=== PATIENT | male | born 1945 | race Caucasian/White ===

== ENCOUNTER 2018-02-07 16:36 | Emergency (ER) | payer MEDICARE, MEDICAID ==
[~2018-02-07] VITALS: Ht 172.7 cm; Wt 90.0 kg
[~2018-02-07 16:36] MED LIST: ASPI-1160 PO; ATEN50TA PO; FAMO20TA8 PO; HYDR-4135 PO; LIP40 PO; OMEP10CA4 MT
[2018-02-07 18:54] VITALS: BP 170/95
== END 2018-02-07 18:56 | disposition home or self-care (01) ==
LOC: ER 17:35
DX: Z48.00 Encounter for change or removal of nonsurgical wound dressing (principal); Z98.890 Other specified postprocedural states; I10 Essential (primary) hypertension
CPT/HCPCS: 99281

== ENCOUNTER 2019-02-16 15:43 | Emergency (ER) | payer MEDICARE, MEDICAID ==
[~2019-02-16] VITALS: Ht 170.2 cm; Wt 91.0 kg
[~2019-02-16 15:43] MED LIST changes: +ACET5SOL2 MT; +AMLO5TAB88 PO; -ATEN50TA PO; +CARI-166 MT; +CLOP75TA15 PO; -HYDR-4135 PO; +LISI10TA5 PO; +MECL-109 MT; -OMEP10CA4 MT
[2019-02-16] MEDS ORDERED: IBUPROFEN 600MG TABLET PO ONE (16:30)
[2019-02-16] MEDS ORDERED: TETANUS, DIPHTHERIA, PERTUSSIS VAC/PF 0.5ML (>7YR OLD) IM ONE (16:30)
[2019-02-16 21:15] VITALS: BP 135/78
== END 2019-02-16 21:16 | disposition home or self-care (01) ==
LOC: ER 15:43
DX: S40.012A Contusion of left shoulder, initial encounter (principal); S00.81XA Abrasion of other part of head, initial encounter; E11.9 Type 2 diabetes mellitus without complications; I10 Essential (primary) hypertension; I25.2 Old myocardial infarction; Z86.73 Personal history of transient ischemic attack (TIA), and cerebral infarction without residual deficits; Z79.82 Long term (current) use of aspirin; Z79.899 Other long term (current) drug therapy; Y04.0XXA Assault by unarmed brawl or fight, initial encounter; Y93.89 Activity, other specified; Y92.128 Other place in nursing home as the place of occurrence of the external cause; Y99.8 Other external cause status
CPT/HCPCS: 73030; 90471; 99283

== ENCOUNTER 2019-03-24 14:23 | Inpatient (IN) | payer MEDICARE, MEDICAID ==
[~2019-03-24] VITALS: Ht 172.7 cm; Wt 81.6 kg
[~2019-03-24 14:23] MED LIST changes: -CARI-166 MT; +CARI350T28 MT; -MECL-109 MT; +MECL-159 MT
[2019-03-24] MEDS ORDERED: SODIUM CHLORIDE 0.9% 1,000 ML IV ONE (17:54)
[2019-03-24 19:34] LABS: CHLORIDE 110 mEq/L (98-107)
[2019-03-24 19:35] LABS: BASOPHILS % 0.8 % (0.0-2.0); EOSINOPHILS % 3.5 % (0.0-5.0); HEMOGLOBIN. 12.1 g/dL (14.0-18.0); LYMPHOCYTES % 22.4 % (20.0-50.0); MEAN CORPUSCULAR HEMOGLOBIN 26.5 pg (28.0-32.0); MEAN PLATELET VOLUME 9.4 fl (7.4-10.4); MONOCYTES % 13.1 % (2.0-8.0); NEUTROPHILS % 60.2 % (40.0-76.0); PLATELET 232 x1000/uL (130-400); RED BLOOD CELL COUNT 4.57 mill/uL (4.7-6.1); RED CELL DISTRIBUTION WIDTH 17.5 % (11.6-14.6)
[2019-03-24] MEDS ORDERED: IPRATROPIUM/ALBUTEROL 0.5-3(2.5)MG/3ML NEB NEB PRN (23:15)
[2019-03-24] MEDS ORDERED: ONDANSETRON HCL 4MG/2ML INJ IV PRN (23:15)
[2019-03-24] MEDS ORDERED: DOCUSATE SODIUM 100MG CAPSULE PO PRN (23:15)
[2019-03-24] MEDS ORDERED: ACETAMINOPHEN 325MG TABLET PO PRN (23:15)
[2019-03-24] MEDS ORDERED: MAGNESIUM/ALUMINUM HYDROXIDE/SIMETHICONE 30ML UDC PO PRN (23:15)
[2019-03-24 23:40] VITALS: BP 172/88
[2019-03-25] MEDS: SODIUM CHLORIDE 0.9% 1,000 ML IV SCH ×2 (01:26→13:11)
[2019-03-25] MEDS: CLONIDINE 0.1MG TABLET PO PRN (01:40)
[2019-03-25] MEDS ORDERED: DEXTROSE 50% WATER 50ML SYRINGE IV PRN (02:00)
[2019-03-25] MEDS ORDERED: ATEN50TA PO (02:40)
[2019-03-25 04:00] VITALS: BP 145/87
[2019-03-25] MEDS: BLOOD SUGAR DIAGNOSTIC STRIP TEST SCH ×4 (07:40→21:33)
[2019-03-25 07:58] LABS: CLARITY URINE CLEAR (CLEAR); KETONES URINE 1+ (NEGATIVE); LEUKOCYTE ESTERASE URINE NEGATIVE (NEGATIVE); NITRITE URINE NEGATIVE (NEGATIVE); OCCULT BLOOD URINE NEGATIVE (NEGATIVE); PROTEIN URINE TRACE (NEGATIVE); SPECIFIC GRAVITY URINE 1.026 (1.005-1.030)
[2019-03-25 08:00] VITALS: BP 151/79
[2019-03-25 08:01] LABS: COLOR URINE YELLOW (YELLOW)
[2019-03-25] MEDS: INSULIN LISPRO 100 UNITS/ML SUBCUT SCH ×4 (08:10→21:00)
[2019-03-25 08:21] LABS: *AMPHETAMINES SCREEN URINE NEGATIVE (NEGATIVE); *BARBITURATES SCREEN URINE NEGATIVE (NEGATIVE); *BENZODIAZEPINES SCREEN URINE NEGATIVE (NEGATIVE); *COCAINE SCREEN URINE NEGATIVE (NEGATIVE)
[2019-03-25 08:22] LABS: CANNABINOID URINE SCREEN NEGATIVE (NEGATIVE); METHADONE URINE SCREEN NEGATIVE (NEGATIVE); OPIATES URINE SCREEN NEGATIVE (NEGATIVE); PHENCYCLIDINE URINE SCREEN NEGATIVE (NEGATIVE)
[2019-03-25 08:25] LABS: BASOPHILS % 0.7 % (0.0-2.0); EOSINOPHILS % 3.6 % (0.0-5.0); HEMATOCRIT. 34.5 % (42.0-52.0); HEMOGLOBIN. 11.3 g/dL (14.0-18.0); LYMPHOCYTES % 24.1 % (20.0-50.0); MEAN CORPUSCULAR HEMOGLOBIN 26.5 pg (28.0-32.0); MEAN CORPUSCULAR VOLUME 81.1 fL (80.0-94.0); MEAN PLATELET VOLUME 9.7 fl (7.4-10.4); MONOCYTES % 14.9 % (2.0-8.0); NEUTROPHILS % 56.7 % (40.0-76.0); PLATELET 207 x1000/uL (130-400); RED BLOOD CELL COUNT 4.25 mill/uL (4.7-6.1); RED CELL DISTRIBUTION WIDTH 17.4 % (11.6-14.6)
[2019-03-25 08:33] LABS: CHLORIDE 112 mEq/L (98-107)
[2019-03-25 08:45] LABS: LDL CHOLESTEROL 48 mg/dL (5-100)
[2019-03-25 08:46] LABS: CREATINE KINASE 91 IU/L (39-308)
[2019-03-25 08:47] LABS: HDL CHOLESTEROL 28 mg/dL (40-59)
[2019-03-25 08:50] LABS: CREATINE KINASE MB FRACTION 2.4 ng/mL (0.5-3.6)
[2019-03-25] MEDS ORDERED: ENOXAPARIN 40MG/0.4ML SYR SUBCUT SCH (09:00)
[2019-03-25] MEDS: ATENOLOL 50 MG TABLET PO SCH ×3 (09:30→21:28)
[2019-03-25] MEDS: LISINOPRIL 10MG TABLET PO SCH ×2 (09:30→21:24)
[2019-03-25] MEDS ORDERED: MECLIZINE 25MG TABLET PO PRN (09:30)
[2019-03-25] MEDS: FAMOTIDINE 40MG TABLET PO SCH ×2 (09:30→13:49)
[2019-03-25] MEDS ORDERED: ASPIRIN 81MG TABLET PO SCH (09:30)
[2019-03-25] MEDS: AMLODIPINE 5MG TABLET PO SCH ×2 (09:30→21:25)
[2019-03-25] MEDS: CLOPIDOGREL 75MG TABLET PO SCH ×2 (09:30→13:47)
[2019-03-25] MEDS ORDERED: ACETAMINOPHEN WITH CODEINE 120-12MG/5ML UDC PO PRN (09:30)
[2019-03-25] MEDS ORDERED: CARISOPRODOL 350 MG TABLET PO PRN (09:30)
[2019-03-25] MEDS: LORAZEPAM 2MG/ML CPJ IV PRN (09:47)
[2019-03-25 12:00] VITALS: BP 159/83
[2019-03-25] MEDS ORDERED: POTASSIUM CHLORIDE INJ 40 MEQ in DEXT 5% WATER 250 ML IV NR (13:00)
[2019-03-25 16:00] VITALS: BP 151/85
[2019-03-25] MEDS ORDERED: CEFAZOLIN 1000MG PREMIX 50 ML IV PRN (17:30)
[2019-03-25] MEDS: ACETAMINOPHEN WITH CODEINE 300/30MG TABLET PO PRN (18:21)
[2019-03-25 20:00] VITALS: BP 179/97
[2019-03-25] MEDS: ATORVASTATIN CALCIUM 40MG TABLET PO SCH (21:28)
[2019-03-25] MEDS: PANTOPRAZOLE SODIUM 40 MG/VIAL IV SCH (21:28)
[2019-03-26] VITALS (7 sets, daily range): BP systolic 126–200; BP diastolic 76–104
[2019-03-26] MEDS: SODIUM CHLORIDE 0.9% 1,000 ML IV SCH (00:13)
[2019-03-26] MEDS: DEXT 5%/0.45% NACL 1000ML 1,000 ML IV SCH ×2 (05:13→17:59)
[2019-03-26 05:27] LABS: BASOPHILS % 0.9 % (0.0-2.0); EOSINOPHILS % 4.6 % (0.0-5.0); HEMATOCRIT. 36.9 % (42.0-52.0); HEMOGLOBIN. 12.4 g/dL (14.0-18.0); LYMPHOCYTES % 25.7 % (20.0-50.0); MEAN CORPUSCULAR HEMOGLOBIN 27.1 pg (28.0-32.0); MEAN CORPUSCULAR VOLUME 80.6 fL (80.0-94.0); MEAN PLATELET VOLUME 9.2 fl (7.4-10.4); MONOCYTES % 9.7 % (2.0-8.0); NEUTROPHILS % 59.1 % (40.0-76.0); PLATELET 217 x1000/uL (130-400); RED BLOOD CELL COUNT 4.57 mill/uL (4.7-6.1)
[2019-03-26 05:30] LABS: CHLORIDE 109 mEq/L (98-107)
[2019-03-26 05:35] LABS: INR 1.1; PROTHROMBIN TIME 11.2 sec (9.6-11.0)
[2019-03-26 05:36] LABS: TOTAL IRON BINDING CAPACITY 230 ug/dL (250-450)
[2019-03-26 05:39] LABS: CREATINE KINASE 95 IU/L (39-308); CREATINE KINASE MB FRACTION 3.4 ng/mL (0.5-3.6)
[2019-03-26 05:45] LABS: FERRITIN 205 ng/mL (22-322)
[2019-03-26] MEDS: ATENOLOL 50 MG TABLET PO SCH ×3 (06:00→22:47)
[2019-03-26 06:36] LABS: VITAMIN B12 SERUM >2000 pg/mL pg/mL (211-911)
[2019-03-26] MEDS: BLOOD SUGAR DIAGNOSTIC STRIP TEST SCH ×4 (07:40→21:00)
[2019-03-26] MEDS: INSULIN LISPRO 100 UNITS/ML SUBCUT SCH ×4 (08:10→21:00)
[2019-03-26] MEDS: HYDRALAZINE 20MG/ML VIAL IV PRN ×2 (08:30→20:49)
[2019-03-26] MEDS: PANTOPRAZOLE SODIUM 40 MG/VIAL IV SCH ×2 (08:30→22:47)
[2019-03-26] MEDS: LISINOPRIL 10MG TABLET PO SCH ×2 (09:00→22:47)
[2019-03-26] MEDS: AMLODIPINE 5MG TABLET PO SCH ×2 (09:00→22:46)
[2019-03-26] MEDS ORDERED: KCL 20MEQ/100ML PREMIX 100 ML IV SCH (12:00)
[2019-03-26] MEDS ORDERED: CEFAZOLIN SODIUM 1000MG/VIAL IM ONE (12:00)
[2019-03-26] MEDS ORDERED: MIDAZOLAM HCL 5 MG/5 ML VIAL IV PRN (15:41)
[2019-03-26] MEDS ORDERED: FENTANYL CITRATE/PF 50MCG/ML 2ML VIAL IV PRN (15:42)
[2019-03-26] MEDS ORDERED: MIDAZOLAM HCL 5 MG/5 ML VIAL ONE (15:44)
[2019-03-26] MEDS ORDERED: FENTANYL CITRATE/PF 50MCG/ML 2ML VIAL ONE (15:45)
[2019-03-26] MEDS: ACETAMINOPHEN WITH CODEINE 300/30MG TABLET PO PRN ×2 (18:31→22:47)
[2019-03-26] MEDS: LORAZEPAM 2MG/ML CPJ IV PRN (20:56)
[2019-03-26] MEDS: ATORVASTATIN CALCIUM 40MG TABLET PO SCH (22:55)
[2019-03-27] VITALS (7 sets, daily range): BP systolic 101–169; BP diastolic 56–87
[2019-03-27] MEDS: METOCLOPRAMIDE HCL 10MG/2ML VIAL IV SCH ×4 (00:23→18:50)
[2019-03-27] MEDS: DEXT 5%/0.45% NACL 1000ML 1,000 ML IV SCH ×2 (05:05→18:30)
[2019-03-27] MEDS: ATENOLOL 50 MG TABLET PO SCH ×2 (05:05→13:44)
[2019-03-27] MEDS: LORAZEPAM 2MG/ML CPJ IV PRN (05:22)
[2019-03-27] MEDS: BLOOD SUGAR DIAGNOSTIC STRIP TEST SCH ×3 (06:35→17:40)
[2019-03-27 07:08] LABS: BASOPHILS % 0.3 % (0.0-2.0); EOSINOPHILS % 0.6 % (0.0-5.0); HEMATOCRIT. 35.8 % (42.0-52.0); LYMPHOCYTES % 15.5 % (20.0-50.0); MEAN CORPUSCULAR HEMOGLOBIN 26.7 pg (28.0-32.0); MEAN CORPUSCULAR VOLUME 79.6 fL (80.0-94.0); MEAN PLATELET VOLUME 9.6 fl (7.4-10.4); MONOCYTES % 10.1 % (2.0-8.0); NEUTROPHILS % 73.5 % (40.0-76.0); PLATELET 241 x1000/uL (130-400); RED CELL DISTRIBUTION WIDTH 17.1 % (11.6-14.6)
[2019-03-27 07:23] LABS: CHLORIDE 109 mEq/L (98-107)
[2019-03-27] MEDS: INSULIN LISPRO 100 UNITS/ML SUBCUT SCH ×3 (07:45→18:10)
[2019-03-27] MEDS: LISINOPRIL 10MG TABLET PO SCH (08:58)
[2019-03-27] MEDS: AMLODIPINE 5MG TABLET PO SCH (08:58)
[2019-03-27] MEDS: CLONIDINE 0.1MG TABLET PO PRN (09:06)
[2019-03-27] MEDS: ACETAMINOPHEN WITH CODEINE 300/30MG TABLET PO PRN ×3 (09:06→19:51)
[2019-03-27] MEDS: PANTOPRAZOLE SODIUM 40 MG/VIAL IV SCH (10:05)
[2019-03-27] MEDS ORDERED: POTASSIUM CHLORIDE 20MEQ/PACKET PO SCH (12:30)
[2019-03-27] MEDS ORDERED: METO5TAB94 MT (14:52)
== END 2019-03-27 21:45 | DRG 641 ==
LOC: ER 14:23 → EDBEDREQTM 21:35 → EDBEDREQ 21:35 → ENRESERV 22:44 → 7WST 23:49
PROVIDERS: ADMIT Internal Medicine; ATTEND Internal Medicine
PROC: 0DB78ZX Excision of Stomach, Pylorus, Via Natural or Artificial Opening Endoscopic, Diagnostic (ICD-10-PCS; principal; 2019-03-26)
PROC: 0DH63UZ Insertion of Feeding Device into Stomach, Percutaneous Approach (ICD-10-PCS; 2019-03-26)
DX: R62.7 Adult failure to thrive (principal); I69.354 Hemiplegia and hemiparesis following cerebral infarction affecting left non-dominant side; E87.6 Hypokalemia; E86.0 Dehydration; I10 Essential (primary) hypertension; F03.90 Unspecified dementia, unspecified severity, without behavioral disturbance, psychotic disturbance, mood disturbance, and anxiety; K20.9 Esophagitis, unspecified; K29.70 Gastritis, unspecified, without bleeding; K29.80 Duodenitis without bleeding; K44.9 Diaphragmatic hernia without obstruction or gangrene; R13.10 Dysphagia, unspecified; Z79.899 Other long term (current) drug therapy; Z79.82 Long term (current) use of aspirin
CPT/HCPCS: 36415; 70551; 71045; 73130; 80048; 80053; 80061; 80305; 81003; 82550; 82553; 82607; 82728; 82746; 82962; 83540; 83550; 83605; 83735; 83880; 84443; 84484; 85025; 85044; 87804; 88305; 88312; 88313; 92610; 93005; 93970; 97162; 99285; A6261; C9113; J0360; J0690; J1650; J2060; J2250; J2765; J3010; J3480; J7030; J7060

== ENCOUNTER 2019-03-30 12:52 | Inpatient (IN) | payer MEDICARE, MEDICAID ==
[~2019-03-30] VITALS: Ht 172.7 cm; Wt 86.2 kg
[~2019-03-30 12:52] MED LIST changes: +ATEN50TA PO; +METO5TAB94 MT
[2019-03-30 13:49] LABS: BASOPHILS % 0.3 % (0.0-2.0); EOSINOPHILS % 2.5 % (0.0-5.0); HEMOGLOBIN. 12.4 g/dL (14.0-18.0); LYMPHOCYTES % 15.2 % (20.0-50.0); MEAN CORPUSCULAR HEMOGLOBIN 26.8 pg (28.0-32.0); MEAN PLATELET VOLUME 9.8 fl (7.4-10.4); MONOCYTES % 9.1 % (2.0-8.0); NEUTROPHILS % 72.9 % (40.0-76.0); PLATELET 258 x1000/uL (130-400); RED BLOOD CELL COUNT 4.63 mill/uL (4.7-6.1)
[2019-03-30 13:55] LABS: CHLORIDE 105 mEq/L (98-107)
[2019-03-30 14:18] LABS: CLARITY URINE CLEAR (CLEAR); COLOR URINE YELLOW (YELLOW); KETONES URINE NEGATIVE (NEGATIVE); LEUKOCYTE ESTERASE URINE NEGATIVE (NEGATIVE); NITRITE URINE NEGATIVE (NEGATIVE); OCCULT BLOOD URINE NEGATIVE (NEGATIVE); PROTEIN URINE 1+ (NEGATIVE); SPECIFIC GRAVITY URINE 1.024 (1.005-1.030)
[2019-03-30] MEDS ORDERED: SODIUM CHLORIDE 0.9% 1,000 ML IV ONE (15:55)
[2019-03-30] MEDS ORDERED: VANCOMYCIN 1 G PREMIX 200 ML IV ONE (16:00)
[2019-03-30] MEDS ORDERED: PIPERACILLIN/TAZ 3.375G PREMIX 50 ML IV ONE (16:00)
[2019-03-30] MEDS ORDERED: PIPERACILLIN/TAZ 3.375G PREMIX 50 ML IV SCH (16:15)
[2019-03-30] MEDS ORDERED: DIPHENHYDRAMINE 50MG/ML VIAL IV PRN (16:15)
[2019-03-30] MEDS ORDERED: MECLIZINE 25MG TABLET GT PRN (16:15)
[2019-03-30] MEDS ORDERED: ONDANSETRON HCL 4MG/2ML INJ IV PRN (16:15)
[2019-03-30 17:30] LABS: PHOSPHORUS 3.1 mg/dL (2.5-4.9)
[2019-03-30] MEDS ORDERED: ATENOLOL 50 MG TABLET PO NR (18:30)
[2019-03-30] MEDS ORDERED: AMLODIPINE 5MG TABLET PO SCH (18:30)
[2019-03-30 21:00] VITALS: BP 149/78
[2019-03-30] MEDS ORDERED: FAMOTIDINE 20MG TABLET PO SCH (21:00)
[2019-03-31] VITALS: BP 152/96
[2019-03-31] MEDS: PIPERACILLIN/TAZOBACTAM 3.375 G in DEXT 5% WATER 100 ML IV SCH ×3 (00:58→16:21)
[2019-03-31] MEDS: SODIUM CHLORIDE 0.9% 1,000 ML IV SCH ×2 (00:58→14:14)
[2019-03-31 04:00] VITALS: BP 163/64
[2019-03-31] MEDS: ATENOLOL 50 MG TABLET PO SCH ×3 (04:02→20:53)
[2019-03-31] MEDS: VANCOMYCIN 750 MG PREMIX 150 ML IV SCH ×2 (04:02→18:16)
[2019-03-31 07:08] LABS: BASOPHILS % 0.4 % (0.0-2.0); EOSINOPHILS % 3.4 % (0.0-5.0); HEMATOCRIT. 33.8 % (42.0-52.0); HEMOGLOBIN. 11.2 g/dL (14.0-18.0); LYMPHOCYTES % 20.6 % (20.0-50.0); MEAN CORPUSCULAR HEMOGLOBIN 26.6 pg (28.0-32.0); MEAN CORPUSCULAR VOLUME 80.3 fL (80.0-94.0); MEAN PLATELET VOLUME 10.1 fl (7.4-10.4); MONOCYTES % 9.7 % (2.0-8.0); NEUTROPHILS % 65.9 % (40.0-76.0); PLATELET 243 x1000/uL (130-400); RED BLOOD CELL COUNT 4.21 mill/uL (4.7-6.1); RED CELL DISTRIBUTION WIDTH 16.9 % (11.6-14.6)
[2019-03-31 07:14] LABS: CHLORIDE 107 mEq/L (98-107)
[2019-03-31 08:00] VITALS: BP 144/86
[2019-03-31] MEDS: LISINOPRIL 10MG TABLET PO SCH ×2 (08:43→20:53)
[2019-03-31] MEDS ORDERED: AMLODIPINE 5MG TABLET PO SCH (09:00)
[2019-03-31] MEDS ORDERED: KCL 20MEQ/100ML PREMIX 100 ML IV NR (10:30)
[2019-03-31 12:00] VITALS: BP 126/97
[2019-03-31] MEDS ORDERED: FENTANYL CITRATE/PF 50MCG/ML 2ML VIAL ONE (12:58)
[2019-03-31] MEDS ORDERED: MIDAZOLAM HCL 5 MG/5 ML VIAL ONE (12:58)
[2019-03-31] MEDS ORDERED: MIDAZOLAM HCL 5 MG/5 ML VIAL IV PRN (13:22)
[2019-03-31] MEDS ORDERED: HYDRALAZINE 20MG/ML VIAL IV ONE (13:33)
[2019-03-31] MEDS ORDERED: HYDRALAZINE 20MG/ML VIAL ONE (13:35)
[2019-03-31] MEDS ORDERED: BACTERIOSTATIC SODIUM CHLORIDE 0.9% 30ML VIAL IJ ONE (14:29)
[2019-03-31] MEDS ORDERED: FENTANYL CITRATE/PF 50MCG/ML 2ML VIAL IV PRN (17:00)
[2019-03-31 20:00] VITALS: BP 156/78
[2019-03-31] MEDS: PANTOPRAZOLE SODIUM 40 MG/VIAL IV SCH (20:52)
[2019-04-01] VITALS: BP 161/65
[2019-04-01] MEDS: PIPERACILLIN/TAZOBACTAM 3.375 G in DEXT 5% WATER 100 ML IV SCH ×3 (01:12→16:27)
[2019-04-01] MEDS: ATORVASTATIN CALCIUM 40MG TABLET PO SCH ×2 (01:29→21:12)
[2019-04-01 04:00] VITALS: BP 158/85
[2019-04-01] MEDS: VANCOMYCIN 750 MG PREMIX 150 ML IV SCH ×2 (05:58→17:34)
[2019-04-01] MEDS: ATENOLOL 50 MG TABLET PO SCH ×3 (05:58→21:13)
[2019-04-01] MEDS: SODIUM CHLORIDE 0.9% 1,000 ML IV SCH ×2 (05:59→16:28)
[2019-04-01 06:54] LABS: BASOPHILS % 0.6 % (0.0-2.0); EOSINOPHILS % 4.4 % (0.0-5.0); HEMATOCRIT. 33.6 % (42.0-52.0); HEMOGLOBIN. 11.1 g/dL (14.0-18.0); LYMPHOCYTES % 22.9 % (20.0-50.0); MEAN CORPUSCULAR HEMOGLOBIN 26.6 pg (28.0-32.0); MEAN CORPUSCULAR VOLUME 80.6 fL (80.0-94.0); MEAN PLATELET VOLUME 9.6 fl (7.4-10.4); MONOCYTES % 9.5 % (2.0-8.0); NEUTROPHILS % 62.6 % (40.0-76.0); PLATELET 254 x1000/uL (130-400); RED BLOOD CELL COUNT 4.17 mill/uL (4.7-6.1); RED CELL DISTRIBUTION WIDTH 16.9 % (11.6-14.6)
[2019-04-01 07:21] LABS: CHLORIDE 110 mEq/L (98-107)
[2019-04-01 07:30] LABS: VANCOMYCIN TROUGH 13.4 ug/mL (5.0-10.0)
[2019-04-01 08:00] VITALS: BP 167/57
[2019-04-01] MEDS: LISINOPRIL 10MG TABLET PO SCH ×2 (08:51→21:12)
[2019-04-01] MEDS: PANTOPRAZOLE SODIUM 40 MG/VIAL IV SCH ×2 (08:52→21:13)
[2019-04-01] MEDS ORDERED: POTASSIUM CHLORIDE 20MEQ TABLET SR PO SCH (09:00)
[2019-04-01 12:00] VITALS: BP 139/85
[2019-04-01 16:00] VITALS: BP 164/68
[2019-04-01] MEDS: LORAZEPAM 2MG/ML CPJ IV PRN (18:09)
[2019-04-01 20:00] VITALS: BP 181/80
[2019-04-01] MEDS: CARISOPRODOL 350 MG TABLET GT PRN (21:26)
[2019-04-02] VITALS: BP 187/86
[2019-04-02] MEDS: PIPERACILLIN/TAZOBACTAM 3.375 G in DEXT 5% WATER 100 ML IV SCH (00:23)
[2019-04-02] MEDS: LORAZEPAM 2MG/ML CPJ IV PRN (01:27)
[2019-04-02 04:00] VITALS: BP 156/88
[2019-04-02] MEDS: VANCOMYCIN 750 MG PREMIX 150 ML IV SCH (05:36)
[2019-04-02] MEDS: SODIUM CHLORIDE 0.9% 1,000 ML IV SCH (05:36)
[2019-04-02] MEDS: ATENOLOL 50 MG TABLET PO SCH ×3 (05:36→21:51)
[2019-04-02 06:54] LABS: BASOPHILS % 0.6 % (0.0-2.0); EOSINOPHILS % 4.1 % (0.0-5.0); HEMATOCRIT. 36.4 % (42.0-52.0); HEMOGLOBIN. 12.1 g/dL (14.0-18.0); LYMPHOCYTES % 24.3 % (20.0-50.0); MEAN CORPUSCULAR HEMOGLOBIN 26.5 pg (28.0-32.0); MEAN PLATELET VOLUME 9.3 fl (7.4-10.4); MONOCYTES % 11.3 % (2.0-8.0); NEUTROPHILS % 59.7 % (40.0-76.0); PLATELET 255 x1000/uL (130-400); RED BLOOD CELL COUNT 4.56 mill/uL (4.7-6.1); RED CELL DISTRIBUTION WIDTH 16.8 % (11.6-14.6)
[2019-04-02 07:28] LABS: CHLORIDE 109 mEq/L (98-107)
[2019-04-02 07:37] LABS: PHOSPHORUS 3.1 mg/dL (2.5-4.9)
[2019-04-02 08:00] VITALS: BP 177/105
[2019-04-02] MEDS: PANTOPRAZOLE SODIUM 40 MG/VIAL IV SCH ×2 (09:58→21:52)
[2019-04-02] MEDS: DEXT 5%/0.9% NACL 1,000 ML IV SCH (10:08)
[2019-04-02] MEDS: LISINOPRIL 10MG TABLET PO SCH ×2 (10:09→21:52)
[2019-04-02] MEDS: AMLODIPINE 5MG TABLET PO SCH (10:19)
[2019-04-02] MEDS ORDERED: DIATR MEGLU/DIATRIZOATE SOLN 30ML PO SCH (10:30)
[2019-04-02] MEDS ORDERED: POTASSIUM CHLORIDE INJ 40 MEQ in DEXT 5% WATER 500 ML IV SCH (11:00)
[2019-04-02 12:00] VITALS: BP 137/63
[2019-04-02 16:00] VITALS: BP 173/98
[2019-04-02] MEDS ORDERED: IOHEXOL-300 100 ML BOTTLE ONE (16:15)
[2019-04-02 20:00] VITALS: BP 144/89
[2019-04-02] MEDS: ATORVASTATIN CALCIUM 40MG TABLET PO SCH (21:51)
[2019-04-02] MEDS: CARISOPRODOL 350 MG TABLET GT PRN (21:51)
[2019-04-03] VITALS: BP 147/91
[2019-04-03] MEDS: LORAZEPAM 2MG/ML CPJ IV PRN (00:10)
[2019-04-03] MEDS: DEXT 5%/0.9% NACL 1,000 ML IV SCH ×3 (03:44→22:25)
[2019-04-03 04:00] VITALS: BP 109/59
[2019-04-03] MEDS: ATENOLOL 50 MG TABLET PO SCH ×3 (05:26→22:56)
[2019-04-03 07:59] LABS: BASOPHILS % 0.7 % (0.0-2.0); EOSINOPHILS % 2.8 % (0.0-5.0); HEMATOCRIT. 33.1 % (42.0-52.0); LYMPHOCYTES % 23.2 % (20.0-50.0); MEAN CORPUSCULAR HEMOGLOBIN 26.7 pg (28.0-32.0); MEAN CORPUSCULAR VOLUME 80.1 fL (80.0-94.0); MEAN PLATELET VOLUME 9.5 fl (7.4-10.4); MONOCYTES % 11.4 % (2.0-8.0); NEUTROPHILS % 61.9 % (40.0-76.0); PLATELET 253 x1000/uL (130-400); RED BLOOD CELL COUNT 4.13 mill/uL (4.7-6.1); RED CELL DISTRIBUTION WIDTH 16.4 % (11.6-14.6)
[2019-04-03 08:00] VITALS: BP 145/64
[2019-04-03 08:23] LABS: PHOSPHORUS 4.1 mg/dL (2.5-4.9)
[2019-04-03] MEDS: PANTOPRAZOLE SODIUM 40 MG/VIAL IV SCH ×2 (09:57→22:26)
[2019-04-03] MEDS: AMLODIPINE 5MG TABLET PO SCH (09:57)
[2019-04-03] MEDS: LISINOPRIL 10MG TABLET PO SCH ×2 (09:57→22:53)
[2019-04-03] MEDS ORDERED: POTASSIUM CHLORIDE INJ 40 MEQ in DEXT 5% WATER 500 ML IV NR (10:00)
[2019-04-03] MEDS ORDERED: VANCOMYCIN 1250MG in DEXTROSE 5% WATER 250ML IV NR (14:00)
[2019-04-03] MEDS: CLONIDINE 0.2MG TABLET PO PRN (18:02)
[2019-04-03 18:41] VITALS: BP 145/64
[2019-04-03 20:00] VITALS: BP 136/71
[2019-04-03] MEDS ORDERED: LIDOCAINE HCL/EPINEPHRINE 1%-EPI 1:100,000 20 ML VIAL INFIL NR (20:00)
[2019-04-03] MEDS: ATORVASTATIN CALCIUM 40MG TABLET PO SCH (22:26)
[2019-04-03] MEDS: VANCOMYCIN 750 MG PREMIX 150 ML IV SCH (22:56)
[2019-04-04 04:00] VITALS: BP 173/68
[2019-04-04] MEDS: CLONIDINE 0.2MG TABLET PO PRN ×2 (04:35→23:50)
[2019-04-04 06:21] LABS: BASOPHILS % 0.6 % (0.0-2.0); EOSINOPHILS % 3.2 % (0.0-5.0); HEMATOCRIT. 28.2 % (42.0-52.0); HEMOGLOBIN. 9.5 g/dL (14.0-18.0); LYMPHOCYTES % 24.8 % (20.0-50.0); MEAN PLATELET VOLUME 9.1 fl (7.4-10.4); MONOCYTES % 10.5 % (2.0-8.0); NEUTROPHILS % 60.9 % (40.0-76.0); PLATELET 243 x1000/uL (130-400); RED BLOOD CELL COUNT 3.53 mill/uL (4.7-6.1); RED CELL DISTRIBUTION WIDTH 16.6 % (11.6-14.6)
[2019-04-04] MEDS: ATENOLOL 50 MG TABLET PO SCH ×3 (06:55→22:12)
[2019-04-04 08:00] VITALS: BP 109/70
[2019-04-04] MEDS: AMLODIPINE 5MG TABLET PO SCH (09:42)
[2019-04-04] MEDS: PANTOPRAZOLE SODIUM 40 MG/VIAL IV SCH ×2 (09:42→21:19)
[2019-04-04] MEDS: LISINOPRIL 10MG TABLET PO SCH ×2 (09:42→21:18)
[2019-04-04] MEDS: VANCOMYCIN 750 MG PREMIX 150 ML IV SCH ×2 (09:42→22:17)
[2019-04-04 12:00] VITALS: BP 141/65
[2019-04-04] MEDS ORDERED: POTASSIUM CHLORIDE INJ 40 MEQ in DEXT 5% WATER 500 ML IV NR (13:30)
[2019-04-04] MEDS: DEXT 5%/0.9% NACL 1,000 ML IV SCH (14:30)
[2019-04-04 16:00] VITALS: BP 100/42
[2019-04-04 20:00] VITALS: BP 162/73
[2019-04-04] MEDS: ATORVASTATIN CALCIUM 40MG TABLET PO SCH (21:18)
[2019-04-05] VITALS: BP 164/78
[2019-04-05 04:00] VITALS: BP 142/76
[2019-04-05] MEDS: CLONIDINE 0.2MG TABLET PO PRN (04:44)
[2019-04-05 05:58] LABS: BASOPHILS % 0.7 % (0.0-2.0); EOSINOPHILS % 3.1 % (0.0-5.0); HEMATOCRIT. 31.6 % (42.0-52.0); HEMOGLOBIN. 10.2 g/dL (14.0-18.0); LYMPHOCYTES % 23.1 % (20.0-50.0); MEAN CORPUSCULAR HEMOGLOBIN 26.4 pg (28.0-32.0); MEAN CORPUSCULAR VOLUME 81.8 fL (80.0-94.0); MONOCYTES % 9.7 % (2.0-8.0); NEUTROPHILS % 63.4 % (40.0-76.0); PLATELET 239 x1000/uL (130-400); RED BLOOD CELL COUNT 3.87 mill/uL (4.7-6.1); RED CELL DISTRIBUTION WIDTH 16.5 % (11.6-14.6)
[2019-04-05] MEDS: ATENOLOL 50 MG TABLET PO SCH ×2 (06:24→14:00)
[2019-04-05 08:01] VITALS: BP 97/55
[2019-04-05] MEDS: AMLODIPINE 5MG TABLET PO SCH (09:00)
[2019-04-05] MEDS: LISINOPRIL 10MG TABLET PO SCH ×2 (09:00→21:00)
[2019-04-05] MEDS: PANTOPRAZOLE SODIUM 40 MG/VIAL IV SCH ×2 (09:56→21:23)
[2019-04-05] MEDS: VANCOMYCIN 750 MG PREMIX 150 ML IV SCH (09:57)
[2019-04-05 12:00] VITALS: BP 124/55
[2019-04-05 15:48] VITALS: BP 98/57
[2019-04-05 20:00] VITALS: BP 127/70
[2019-04-05] MEDS: ATORVASTATIN CALCIUM 40MG TABLET PO SCH (21:26)
[2019-04-05] MEDS: DEXT 5%/0.9% NACL 1,000 ML IV SCH (21:37)
[2019-04-06] VITALS: BP 169/74
[2019-04-06] MEDS: ATENOLOL 50 MG TABLET PO SCH ×4 (00:10→22:53)
[2019-04-06 04:00] VITALS: BP 147/81
[2019-04-06 08:00] VITALS: BP 203/94
[2019-04-06 08:19] LABS: BASOPHILS % 0.7 % (0.0-2.0); EOSINOPHILS % 3.5 % (0.0-5.0); HEMATOCRIT. 33.6 % (42.0-52.0); HEMOGLOBIN. 11.3 g/dL (14.0-18.0); LYMPHOCYTES % 19.6 % (20.0-50.0); MEAN CORPUSCULAR HEMOGLOBIN 26.7 pg (28.0-32.0); MEAN CORPUSCULAR VOLUME 79.3 fL (80.0-94.0); MEAN PLATELET VOLUME 9.1 fl (7.4-10.4); MONOCYTES % 9.7 % (2.0-8.0); NEUTROPHILS % 66.5 % (40.0-76.0); PLATELET 246 x1000/uL (130-400); RED BLOOD CELL COUNT 4.24 mill/uL (4.7-6.1); RED CELL DISTRIBUTION WIDTH 16.7 % (11.6-14.6)
[2019-04-06] MEDS: AMLODIPINE 5MG TABLET PO SCH (08:41)
[2019-04-06] MEDS: LISINOPRIL 10MG TABLET PO SCH ×2 (08:41→20:20)
[2019-04-06] MEDS: PANTOPRAZOLE SODIUM 40 MG/VIAL IV SCH ×2 (09:00→20:19)
[2019-04-06] MEDS ORDERED: POTASSIUM CHLORIDE 20MEQ TABLET SR PO NR (11:45)
[2019-04-06 12:00] VITALS: BP 176/98
[2019-04-06] MEDS: HYDROCODONE/ACETAMINOPHEN 5/325MG TABLET PO PRN (12:04)
[2019-04-06] MEDS: CLONIDINE 0.2MG TABLET PO PRN (12:43)
[2019-04-06 16:08] VITALS: BP 100/68
[2019-04-06] MEDS: VANCOMYCIN 1 G PREMIX 200 ML IV SCH (16:35)
[2019-04-06 20:00] VITALS: BP 135/58
[2019-04-06] MEDS: ATORVASTATIN CALCIUM 40MG TABLET PO SCH (20:19)
[2019-04-06] MEDS: DEXT 5%/0.9% NACL 1,000 ML IV SCH (23:01)
[2019-04-07] VITALS: BP 139/64
[2019-04-07 04:00] VITALS: BP 203/88
[2019-04-07] MEDS: CARISOPRODOL 350 MG TABLET GT PRN (04:13)
[2019-04-07] MEDS: CLONIDINE 0.2MG TABLET PO PRN (04:13)
[2019-04-07] MEDS: ATENOLOL 50 MG TABLET PO SCH ×3 (06:00→21:55)
[2019-04-07 07:44] LABS: BASOPHILS % 0.7 % (0.0-2.0); EOSINOPHILS % 3.2 % (0.0-5.0); HEMATOCRIT. 32.6 % (42.0-52.0); HEMOGLOBIN. 10.7 g/dL (14.0-18.0); LYMPHOCYTES % 24.4 % (20.0-50.0); MEAN CORPUSCULAR HEMOGLOBIN 26.4 pg (28.0-32.0); MEAN CORPUSCULAR VOLUME 80.4 fL (80.0-94.0); MEAN PLATELET VOLUME 9.1 fl (7.4-10.4); MONOCYTES % 8.3 % (2.0-8.0); NEUTROPHILS % 63.4 % (40.0-76.0); PLATELET 236 x1000/uL (130-400); RED BLOOD CELL COUNT 4.05 mill/uL (4.7-6.1); RED CELL DISTRIBUTION WIDTH 16.8 % (11.6-14.6)
[2019-04-07 08:00] VITALS: BP 119/65
[2019-04-07] MEDS: LISINOPRIL 10MG TABLET PO SCH ×2 (09:00→22:00)
[2019-04-07] MEDS: AMLODIPINE 5MG TABLET PO SCH (09:00)
[2019-04-07] MEDS: PANTOPRAZOLE SODIUM 40 MG/VIAL IV SCH ×2 (09:00→21:55)
[2019-04-07] MEDS: DEXT 5%/0.9% NACL 1,000 ML IV SCH ×2 (09:45→19:45)
[2019-04-07 12:00] VITALS: BP 162/70
[2019-04-07] MEDS: VANCOMYCIN 1 G PREMIX 200 ML IV SCH (15:50)
[2019-04-07 16:00] VITALS: BP 131/71
[2019-04-07] MEDS ORDERED: POTASSIUM CHLORIDE INJ 40 MEQ in DEXT 5% WATER 250 ML IV NR (18:00)
[2019-04-07 20:00] VITALS: BP 152/68
[2019-04-07] MEDS: ATORVASTATIN CALCIUM 40MG TABLET PO SCH (21:55)
[2019-04-07] MEDS: MORPHINE SULFATE 2 MG/ML CPJ (NOT FOR IM USE) IV PRN (23:41)
[2019-04-08] VITALS: BP 105/86
[2019-04-08 04:00] VITALS: BP 169/90
[2019-04-08] MEDS: ATENOLOL 50 MG TABLET PO SCH ×3 (05:49→22:47)
[2019-04-08 07:15] LABS: BASOPHILS % 0.9 % (0.0-2.0); EOSINOPHILS % 3.5 % (0.0-5.0); HEMATOCRIT. 34.2 % (42.0-52.0); HEMOGLOBIN. 11.4 g/dL (14.0-18.0); LYMPHOCYTES % 18.9 % (20.0-50.0); MEAN CORPUSCULAR HEMOGLOBIN 26.9 pg (28.0-32.0); MEAN CORPUSCULAR VOLUME 80.3 fL (80.0-94.0); MEAN PLATELET VOLUME 9.4 fl (7.4-10.4); MONOCYTES % 8.3 % (2.0-8.0); NEUTROPHILS % 68.4 % (40.0-76.0); PLATELET 232 x1000/uL (130-400); RED BLOOD CELL COUNT 4.26 mill/uL (4.7-6.1); RED CELL DISTRIBUTION WIDTH 16.5 % (11.6-14.6)
[2019-04-08 08:00] VITALS: BP 198/85
[2019-04-08] MEDS: AMLODIPINE 5MG TABLET PO SCH (09:06)
[2019-04-08] MEDS: PANTOPRAZOLE SODIUM 40 MG/VIAL IV SCH ×2 (09:06→20:02)
[2019-04-08] MEDS: LISINOPRIL 10MG TABLET PO SCH ×2 (09:06→20:01)
[2019-04-08 12:00] VITALS: BP 130/77
[2019-04-08] MEDS ORDERED: POTASSIUM CHLORIDE 20MEQ TABLET SR PO NR (12:30)
[2019-04-08] MEDS ORDERED: POTASSIUM CHLORIDE 20MEQ/PACKET PO NR (12:45)
[2019-04-08] MEDS: VANCOMYCIN 1 G PREMIX 200 ML IV SCH ×2 (15:00→17:56)
[2019-04-08 16:00] VITALS: BP 172/92
[2019-04-08] MEDS: CLONIDINE 0.2MG TABLET PO PRN (17:23)
[2019-04-08] MEDS: MORPHINE SULFATE 2 MG/ML CPJ (NOT FOR IM USE) IV PRN (17:25)
[2019-04-08 20:00] VITALS: BP 148/94
[2019-04-08] MEDS: HYDROCODONE/ACETAMINOPHEN 5/325MG TABLET PO PRN (20:01)
[2019-04-08] MEDS: ATORVASTATIN CALCIUM 40MG TABLET PO SCH (20:02)
[2019-04-09] VITALS: BP 120/56
[2019-04-09 04:00] VITALS: BP 139/75
[2019-04-09] MEDS: DEXT 5%/0.9% NACL 1,000 ML IV SCH (06:41)
[2019-04-09] MEDS: ATENOLOL 50 MG TABLET PO SCH ×3 (06:42→22:00)
[2019-04-09 08:00] VITALS: BP 127/73
[2019-04-09] MEDS ORDERED: POTASSIUM CHLORIDE 20MEQ TABLET SR PO SCH (09:00)
[2019-04-09] MEDS: LISINOPRIL 10MG TABLET PO SCH ×2 (09:05→20:38)
[2019-04-09] MEDS: PANTOPRAZOLE SODIUM 40 MG/VIAL IV SCH ×2 (09:05→20:38)
[2019-04-09] MEDS: AMLODIPINE 5MG TABLET PO SCH (09:05)
[2019-04-09] MEDS: POTASSIUM CHLORIDE 20MEQ/PACKET PO SCH (09:05)
[2019-04-09 12:00] VITALS: BP 153/78
[2019-04-09] MEDS: MORPHINE SULFATE 2 MG/ML CPJ (NOT FOR IM USE) IV PRN (12:23)
[2019-04-09] MEDS: GUAIFENESIN 200MG/10ML SUGAR FREE UDC PO SCH ×2 (13:25→20:38)
[2019-04-09 16:00] VITALS: BP 177/66
[2019-04-09] MEDS: CLONIDINE 0.2MG TABLET PO PRN (16:58)
[2019-04-09] MEDS ORDERED: VANCOMYCIN 750 MG PREMIX 150 ML IV SCH (18:00)
[2019-04-09 20:00] VITALS: BP 104/60
[2019-04-09] MEDS: ATORVASTATIN CALCIUM 40MG TABLET PO SCH (20:38)
[2019-04-10] VITALS: BP 101/59
[2019-04-10 04:00] VITALS: BP 148/58
[2019-04-10] MEDS: ATENOLOL 50 MG TABLET PO SCH ×3 (06:04→22:02)
[2019-04-10] MEDS: GUAIFENESIN 200MG/10ML SUGAR FREE UDC PO SCH ×3 (06:04→21:10)
[2019-04-10 07:54] LABS: BASOPHILS % 0.5 % (0.0-2.0); HEMATOCRIT. 28.4 % (42.0-52.0); HEMOGLOBIN. 9.4 g/dL (14.0-18.0); LYMPHOCYTES % 18.2 % (20.0-50.0); MEAN CORPUSCULAR HEMOGLOBIN 26.6 pg (28.0-32.0); MEAN CORPUSCULAR VOLUME 80.8 fL (80.0-94.0); MEAN PLATELET VOLUME 9.6 fl (7.4-10.4); MONOCYTES % 9.6 % (2.0-8.0); NEUTROPHILS % 68.7 % (40.0-76.0); PLATELET 179 x1000/uL (130-400); RED BLOOD CELL COUNT 3.52 mill/uL (4.7-6.1); RED CELL DISTRIBUTION WIDTH 17.2 % (11.6-14.6)
[2019-04-10 08:00] VITALS: BP 193/69
[2019-04-10] MEDS: AMLODIPINE 5MG TABLET PO SCH (08:36)
[2019-04-10] MEDS: PANTOPRAZOLE SODIUM 40 MG/VIAL IV SCH ×2 (08:36→21:09)
[2019-04-10] MEDS: LISINOPRIL 10MG TABLET PO SCH ×2 (08:36→21:10)
[2019-04-10] MEDS: POTASSIUM CHLORIDE 20MEQ/PACKET PO SCH (08:36)
[2019-04-10 12:00] VITALS: BP 168/84
[2019-04-10] MEDS: MORPHINE SULFATE 2 MG/ML CPJ (NOT FOR IM USE) IV PRN (12:09)
[2019-04-10] MEDS: CLONIDINE 0.2MG TABLET PO PRN (15:12)
[2019-04-10] MEDS ORDERED: AMLODIPINE 5MG TABLET PO NR (15:15)
[2019-04-10 16:00] VITALS: BP 165/80
[2019-04-10] MEDS ORDERED: DOXYCYCLINE HYCLATE 100MG CAPSULE PO SCH (17:00)
[2019-04-10] MEDS: DEXT 5%/0.9% NACL 1,000 ML IV SCH ×2 (17:59→18:00)
[2019-04-10 20:00] VITALS: BP 109/63
[2019-04-10] MEDS ORDERED: AMOXICILLIN/POTASSIUM CLAVULANATE 875/125MG TAB PO SCH (21:00)
[2019-04-10] MEDS: ATORVASTATIN CALCIUM 40MG TABLET PO SCH (21:09)
[2019-04-11] VITALS: BP 160/68
[2019-04-11] MEDS: DEXT 5%/0.9% NACL 1,000 ML IV SCH ×2 (00:45→12:45)
[2019-04-11 04:00] VITALS: BP 165/91
[2019-04-11] MEDS: GUAIFENESIN 200MG/10ML SUGAR FREE UDC PO SCH ×3 (05:52→21:07)
[2019-04-11] MEDS: ATENOLOL 50 MG TABLET PO SCH ×2 (05:53→13:12)
[2019-04-11 08:00] VITALS: BP 201/82
[2019-04-11] MEDS: AMLODIPINE 10MG TABLET PO SCH (08:31)
[2019-04-11] MEDS: LISINOPRIL 10MG TABLET PO SCH (08:31)
[2019-04-11] MEDS: PANTOPRAZOLE SODIUM 40 MG/VIAL IV SCH ×2 (08:31→20:57)
[2019-04-11] MEDS: POTASSIUM CHLORIDE 20MEQ/PACKET PO SCH (08:31)
[2019-04-11] MEDS: CLONIDINE 0.2MG TABLET PO PRN (11:33)
[2019-04-11 12:00] VITALS: BP 208/71
[2019-04-11] MEDS ORDERED: HYDRALAZINE 20MG/ML VIAL IV PRN (14:15)
[2019-04-11] MEDS ORDERED: HYDRALAZINE 10 MG in SODIUM CHLORIDE 0.9% 49.5 ML IV PRN (14:15)
[2019-04-11 16:00] VITALS: BP 160/68
[2019-04-11 17:45] LABS: PROTHROMBIN TIME 10.7 sec (9.6-11.0)
[2019-04-11 20:00] VITALS: BP 155/68
[2019-04-11] MEDS: METOPROLOL TARTRATE 50MG TABLET PO SCH (20:56)
[2019-04-11] MEDS: ATORVASTATIN CALCIUM 40MG TABLET PO SCH (20:56)
[2019-04-11] MEDS: LISINOPRIL 20MG TABLET PO SCH (20:57)
[2019-04-12] VITALS (7 sets, daily range): BP systolic 137–192; BP diastolic 61–108
[2019-04-12] MEDS: CARISOPRODOL 350 MG TABLET GT PRN (00:15)
[2019-04-12] MEDS: DEXT 5%/0.9% NACL 1,000 ML IV SCH ×3 (00:16→21:17)
[2019-04-12] MEDS ORDERED: CLONIDINE 0.1MG TABLET PO PRN (05:00)
[2019-04-12 06:36] LABS: INR 1.1; PROTHROMBIN TIME 11.4 sec (9.6-11.0)
[2019-04-12 06:49] LABS: BASOPHILS % 0.8 % (0.0-2.0); EOSINOPHILS % 3.7 % (0.0-5.0); HEMATOCRIT. 32.5 % (42.0-52.0); HEMOGLOBIN. 10.6 g/dL (14.0-18.0); LYMPHOCYTES % 23.1 % (20.0-50.0); MEAN CORPUSCULAR HEMOGLOBIN 26.5 pg (28.0-32.0); MEAN CORPUSCULAR VOLUME 81.5 fL (80.0-94.0); MEAN PLATELET VOLUME 9.8 fl (7.4-10.4); MONOCYTES % 9.9 % (2.0-8.0); NEUTROPHILS % 62.5 % (40.0-76.0); PLATELET 193 x1000/uL (130-400); RED BLOOD CELL COUNT 3.99 mill/uL (4.7-6.1)
[2019-04-12 08:52] LABS: RED BLOOD CELL COUNT 4.19 mill/uL (4.7-6.1)
[2019-04-12 08:53] LABS: HEMATOCRIT 33.4 % (42.0-52.0); HEMOGLOBIN 11.1 g/dL (14.0-18.0); MEAN CORPUSCULAR HEMOGLOBIN 26.5 pg (28.0-32.0); MEAN CORPUSCULAR VOLUME 79.8 fL (80.0-94.0); PLATELET 190 x1000/uL (130-400); RED CELL DISTRIBUTION WIDTH 17.1 % (11.6-14.6)
[2019-04-12] MEDS: METOPROLOL TARTRATE 50MG TABLET PO SCH ×2 (09:00→21:00)
[2019-04-12] MEDS: LISINOPRIL 20MG TABLET PO SCH ×2 (09:00→21:00)
[2019-04-12] MEDS: POTASSIUM CHLORIDE 20MEQ/PACKET PO SCH (09:00)
[2019-04-12] MEDS: AMLODIPINE 10MG TABLET PO SCH (09:00)
[2019-04-12] MEDS ORDERED: HYDRALAZINE 5 MG in SODIUM CHLORIDE 0.9% 49.5 ML IV NR (10:00)
[2019-04-12] MEDS: PANTOPRAZOLE SODIUM 40 MG/VIAL IV SCH ×2 (10:05→21:10)
[2019-04-12] MEDS ORDERED: POTASSIUM CHLORIDE INJ 40 MEQ in DEXT 5% WATER 500 ML IV NR (11:00)
[2019-04-12] MEDS ORDERED: FENTANYL CITRATE/PF 50MCG/ML 2ML VIAL ONE (15:36)
[2019-04-12] MEDS ORDERED: MIDAZOLAM HCL 5 MG/5 ML VIAL ONE (15:36)
[2019-04-12] MEDS ORDERED: FENTANYL CITRATE/PF 50MCG/ML 2ML VIAL IV PRN (15:36)
[2019-04-12] MEDS ORDERED: MIDAZOLAM HCL 5 MG/5 ML VIAL IV PRN (15:36)
[2019-04-12] MEDS: MORPHINE SULFATE 2 MG/ML CPJ (NOT FOR IM USE) IV PRN (18:23)
[2019-04-12] MEDS: ATORVASTATIN CALCIUM 40MG TABLET PO SCH (21:00)
[2019-04-12] MEDS: CEFAZOLIN 1000MG PREMIX 50 ML IV SCH (21:11)
[2019-04-12] MEDS: GUAIFENESIN 200MG/10ML SUGAR FREE UDC PO SCH (21:12)
[2019-04-13] VITALS: BP 125/81
[2019-04-13] MEDS: MORPHINE SULFATE 2 MG/ML CPJ (NOT FOR IM USE) IV PRN ×3 (00:27→10:59)
[2019-04-13] MEDS: CEFAZOLIN 1000MG PREMIX 50 ML IV SCH ×2 (03:17→12:12)
[2019-04-13 04:00] VITALS: BP 158/89
[2019-04-13] MEDS: GUAIFENESIN 200MG/10ML SUGAR FREE UDC PO SCH ×2 (05:24→14:16)
[2019-04-13] MEDS: DEXT 5%/0.9% NACL 1,000 ML IV SCH ×2 (05:45→15:45)
[2019-04-13 06:49] LABS: BASOPHILS % 0.4 % (0.0-2.0); EOSINOPHILS % 0.5 % (0.0-5.0); HEMATOCRIT. 34.1 % (42.0-52.0); HEMOGLOBIN. 11.1 g/dL (14.0-18.0); LYMPHOCYTES % 18.6 % (20.0-50.0); MEAN CORPUSCULAR HEMOGLOBIN 26.1 pg (28.0-32.0); MEAN CORPUSCULAR VOLUME 80.3 fL (80.0-94.0); MONOCYTES % 8.1 % (2.0-8.0); NEUTROPHILS % 72.4 % (40.0-76.0); PLATELET 226 x1000/uL (130-400); RED BLOOD CELL COUNT 4.24 mill/uL (4.7-6.1); RED CELL DISTRIBUTION WIDTH 17.1 % (11.6-14.6)
[2019-04-13 08:00] VITALS: BP 130/80
[2019-04-13] MEDS: POTASSIUM CHLORIDE 20MEQ/PACKET PO SCH (09:02)
[2019-04-13] MEDS: METOPROLOL TARTRATE 50MG TABLET PO SCH (09:03)
[2019-04-13] MEDS: LISINOPRIL 20MG TABLET PO SCH (09:03)
[2019-04-13] MEDS: AMLODIPINE 10MG TABLET PO SCH (09:04)
[2019-04-13] MEDS: PANTOPRAZOLE SODIUM 40 MG/VIAL IV SCH (09:04)
[2019-04-13 12:00] VITALS: BP 151/69
[2019-04-13] MEDS ORDERED: POTASSIUM CHLORIDE 20MEQ/PACKET GT NR (15:30)
[2019-04-13 16:00] VITALS: BP_SYST 135; BP_SYST 142; BP_DIAS 58; BP_DIAS 79
[2019-04-13] MEDS: CARISOPRODOL 350 MG TABLET GT PRN (16:09)
[2019-04-13 16:16] VITALS: BP 132/60
[2019-04-13] MEDS ORDERED: POTASSIUM CHLORIDE INJ 40 MEQ in DEXT 5% WATER 500 ML IV NR (17:00)
== END 2019-04-13 19:11 | DRG 357 ==
LOC: ER 12:52 → 6EST 15:56 → EDBEDREQTM 16:06 → EDBEDREQ 16:06 → EDBEDREQSVC 16:06 → ENRESERV 20:27 → EDBEDREQ 20:59
PROVIDERS: ADMIT Internal Medicine; ATTEND Internal Medicine
PROC: 0DJ68ZZ Inspection of Stomach, Via Natural or Artificial Opening Endoscopic (ICD-10-PCS; principal; 2019-03-31)
PROC: 0DP6XUZ Removal of Feeding Device from Stomach, External Approach (ICD-10-PCS; 2019-03-31)
PROC: 0JB80ZZ Excision of Abdomen Subcutaneous Tissue and Fascia, Open Approach (ICD-10-PCS; 2019-04-03)
PROC: 0DH63UZ Insertion of Feeding Device into Stomach, Percutaneous Approach (ICD-10-PCS; 2019-04-12)
DX: K94.29 Other complications of gastrostomy (principal); L03.311 Cellulitis of abdominal wall; I69.354 Hemiplegia and hemiparesis following cerebral infarction affecting left non-dominant side; L02.211 Cutaneous abscess of abdominal wall; E44.1 Mild protein-calorie malnutrition; K94.23 Gastrostomy malfunction; K94.22 Gastrostomy infection; K44.9 Diaphragmatic hernia without obstruction or gangrene; R13.12 Dysphagia, oropharyngeal phase; D64.9 Anemia, unspecified; E87.6 Hypokalemia; B95.4 Other streptococcus as the cause of diseases classified elsewhere; F01.50 Vascular dementia, unspecified severity, without behavioral disturbance, psychotic disturbance, mood disturbance, and anxiety; Y83.3 Surgical operation with formation of external stoma as the cause of abnormal reaction of the patient, or of later complication, without mention of misadventure at the time of the procedure; M24.542 Contracture, left hand; K29.70 Gastritis, unspecified, without bleeding; I10 Essential (primary) hypertension; Y92.128 Other place in nursing home as the place of occurrence of the external cause; Z79.02 Long term (current) use of antithrombotics/antiplatelets; Z79.82 Long term (current) use of aspirin; I25.2 Old myocardial infarction; Z68.28 Body mass index [BMI] 28.0-28.9, adult
CPT/HCPCS: 36415; 71045; 74176; 74177; 80048; 80053; 80202; 81003; 83735; 84100; 84134; 85025; 85027; 87070; 87075; 92610; 93005; 93970; 96365; 99285; A6261; C9113; J0360; J0690; J2060; J2250; J2270; J2405; J2543; J3010; J3370; J3480; J3490; J7030; J7040; J7042; J7060; Q9963; Q9967

== ENCOUNTER 2019-06-01 17:13 | Inpatient (IN) | payer MEDICARE, MEDICAID ==
[~2019-06-01] VITALS: Ht 172.7 cm; Wt 69.4 kg
[2019-06-01] MEDS ORDERED: PIPERACILLIN/TAZ 3.375G PREMIX 50 ML IV ONE (17:45)
[2019-06-01] MEDS ORDERED: SODIUM CHLORIDE 0.9% 1000ML BAG (SEPSIS BOLUS) IV ONE (17:45)
[2019-06-01] MEDS ORDERED: VANCOMYCIN 1 G PREMIX 200 ML IV ONE (17:45)
[2019-06-01 17:57] LABS: BASOPHILS % 0.5 % (0.0-2.0); EOSINOPHILS % 0.3 % (0.0-5.0); LYMPHOCYTES % 8.7 % (20.0-50.0); MEAN CORPUSCULAR HEMOGLOBIN 26.1 pg (28.0-32.0); MONOCYTES % 10.8 % (2.0-8.0); NEUTROPHILS % 79.7 % (40.0-76.0); PLATELET 378 x1000/uL (130-400); RED BLOOD CELL COUNT 2.27 mill/uL (4.7-6.1); RED CELL DISTRIBUTION WIDTH 18.8 % (11.6-14.6)
[2019-06-01 17:59] LABS: HEMATOCRIT. 19.1 % (42.0-52.0); HEMOGLOBIN. 5.9 g/dL (14.0-18.0)
[2019-06-01 18:04] LABS: PROTHROMBIN TIME 10.4 sec (9.6-11.0)
[2019-06-01 18:06] LABS: CHLORIDE 110 mEq/L (98-107)
[2019-06-01 18:23] LABS: CLARITY URINE CLEAR (CLEAR); COLOR URINE YELLOW (YELLOW); KETONES URINE NEGATIVE (NEGATIVE); LEUKOCYTE ESTERASE URINE 3+ (NEGATIVE); NITRITE URINE POSITIVE (NEGATIVE); OCCULT BLOOD URINE NEGATIVE (NEGATIVE); PROTEIN URINE TRACE (NEGATIVE); SPECIFIC GRAVITY URINE 1.016 (1.005-1.030)
[2019-06-01] MEDS ORDERED: ACETAMINOPHEN 650MG SUPP PR SCH (18:30)
[2019-06-01] MEDS ORDERED: CLONIDINE 0.1MG TABLET PO PRN (19:00)
[2019-06-01] MEDS ORDERED: IPRATROPIUM/ALBUTEROL 0.5-3(2.5)MG/3ML NEB HHN PRN (19:00)
[2019-06-01] MEDS ORDERED: ONDANSETRON HCL 4MG/2ML INJ IV PRN (19:00)
[2019-06-01 19:08] LABS: PHOSPHORUS 3.4 mg/dL (2.5-4.9)
[2019-06-01 22:04] VITALS: BP 119/59
[2019-06-01] MEDS: SODIUM CHLORIDE 0.9% 1,000 ML IV SCH (22:41)
[2019-06-01 23:10] VITALS: BP 131/66
[2019-06-01 23:34] VITALS: BP 119/64
[2019-06-02] VITALS (17 sets, daily range): BP systolic 108–154; BP diastolic 39–93
[2019-06-02] MEDS: ACETAMINOPHEN 325MG TABLET PO PRN ×2 (02:27→21:40)
[2019-06-02] MEDS: VANCOMYCIN 1 G PREMIX 200 ML IV SCH ×2 (03:05→13:34)
[2019-06-02] MEDS: PIPERACILLIN/TAZOBACTAM 3.375 G in DEXT 5% WATER 100 ML IV SCH ×3 (07:27→17:45)
[2019-06-02] MEDS ORDERED: DEXTROSE 50% WATER 50ML SYRINGE IV PRN (10:30)
[2019-06-02] MEDS ORDERED: LACTATED RINGERS 1,000 ML IV SCH (11:20)
[2019-06-02] MEDS: PANTOPRAZOLE 40MG DR TABLET PO SCH ×2 (11:34→17:49)
[2019-06-02] MEDS: SODIUM CHLORIDE 0.9% 1,000 ML IV SCH ×2 (12:05→21:39)
[2019-06-02] MEDS ORDERED: BLOOD SUGAR DIAGNOSTIC STRIP TEST SCH (12:30)
[2019-06-02] MEDS ORDERED: INSULIN LISPRO 100 UNITS/ML SUBCUT SCH (13:00)
[2019-06-02 13:07] LABS: HEMATOCRIT. 24.6 % (42.0-52.0); HEMOGLOBIN. 8.2 g/dL (14.0-18.0); MEAN CORPUSCULAR HEMOGLOBIN 28.2 pg (28.0-32.0); MEAN CORPUSCULAR VOLUME 84.8 fL (80.0-94.0); MEAN PLATELET VOLUME 9.4 fl (7.4-10.4); PLATELET 299 x1000/uL (130-400); RED CELL DISTRIBUTION WIDTH 17.2 % (11.6-14.6)
[2019-06-02 13:15] LABS: CHLORIDE 115 mEq/L (98-107)
[2019-06-02 13:23] LABS: HDL CHOLESTEROL 32 mg/dL (40-59); LDL CHOLESTEROL 26 mg/dL (5-100)
[2019-06-02 13:27] LABS: PLATELET ESTIMATE NORMAL
[2019-06-02 13:31] LABS: T4 FREE 1.47 ng/dL (0.76-1.46)
[2019-06-02 15:54] LABS: HEMATOCRIT 22.1 % (42.0-52.0); HEMOGLOBIN 7.2 g/dL (14.0-18.0); MEAN CORPUSCULAR HEMOGLOBIN 27.6 pg (28.0-32.0); MEAN CORPUSCULAR VOLUME 84.9 fL (80.0-94.0); PLATELET 274 x1000/uL (130-400); RED CELL DISTRIBUTION WIDTH 17.5 % (11.6-14.6)
[2019-06-02 16:15] LABS: FOLIC ACID (FOLATE) SERUM >20 ng/mL ng/mL (>5.38)
[2019-06-02 16:26] LABS: VITAMIN B12 SERUM 1146 pg/mL (211-911)
[2019-06-02] MEDS: BLOOD SUGAR DIAGNOSTIC STRIP TEST SCH (17:43)
[2019-06-02] MEDS: INSULIN LISPRO 100 UNITS/ML SUBCUT SCH (17:44)
[2019-06-02 20:03] LABS: HEMATOCRIT 22.6 % (42.0-52.0); HEMOGLOBIN 7.3 g/dL (14.0-18.0)
[2019-06-02] MEDS: ATORVASTATIN CALCIUM 40MG TABLET PO SCH (21:39)
[2019-06-02 23:49] LABS: HEMOGLOBIN 7.2 g/dL (14.0-18.0); MEAN CORPUSCULAR VOLUME 84.9 fL (80.0-94.0); PLATELET 277 x1000/uL (130-400); RED BLOOD CELL COUNT 2.59 mill/uL (4.7-6.1); RED CELL DISTRIBUTION WIDTH 17.1 % (11.6-14.6)
[2019-06-03] VITALS (14 sets, daily range): BP systolic 108–158; BP diastolic 26–86
[2019-06-03] MEDS: VANCOMYCIN 1 G PREMIX 200 ML IV SCH ×2 (00:18→12:18)
[2019-06-03] MEDS: PIPERACILLIN/TAZOBACTAM 3.375 G in DEXT 5% WATER 100 ML IV SCH ×2 (02:34→08:40)
[2019-06-03] MEDS: INSULIN LISPRO 100 UNITS/ML SUBCUT SCH ×4 (06:00→18:00)
[2019-06-03] MEDS: BLOOD SUGAR DIAGNOSTIC STRIP TEST SCH ×4 (06:00→17:21)
[2019-06-03 07:47] LABS: MEAN CORPUSCULAR HEMOGLOBIN 27.8 pg (28.0-32.0); MEAN CORPUSCULAR VOLUME 85.9 fL (80.0-94.0); PLATELET 264 x1000/uL (130-400); RED BLOOD CELL COUNT 2.42 mill/uL (4.7-6.1); RED CELL DISTRIBUTION WIDTH 17.1 % (11.6-14.6)
[2019-06-03 08:19] LABS: HEMATOCRIT 20.8 % (42.0-52.0); HEMOGLOBIN 6.7 g/dL (14.0-18.0)
[2019-06-03 08:39] LABS: CHLORIDE 119 mEq/L (98-107)
[2019-06-03] MEDS: PANTOPRAZOLE 40MG DR TABLET PO SCH ×2 (08:40→17:20)
[2019-06-03 08:46] LABS: PHOSPHORUS 2.5 mg/dL (2.5-4.9)
[2019-06-03] MEDS ORDERED: SODIUM CHLORIDE 0.9% 500 ML IV SCH ×2 (09:00→21:00)
[2019-06-03] MEDS: ACETAMINOPHEN 325MG TABLET PO PRN (13:29)
[2019-06-03] MEDS: CEFAZOLIN 1000MG PREMIX 50 ML IV SCH (17:20)
[2019-06-03] MEDS: SODIUM CHLORIDE 0.9% 1,000 ML IV SCH (17:21)
[2019-06-03 19:12] LABS: HEMATOCRIT 23.9 % (42.0-52.0); HEMOGLOBIN 7.9 g/dL (14.0-18.0)
[2019-06-03] MEDS: ATORVASTATIN CALCIUM 40MG TABLET PO SCH (21:34)
[2019-06-04] VITALS (12 sets, daily range): BP systolic 125–182; BP diastolic 56–93
[2019-06-04] MEDS: VANCOMYCIN 1 G PREMIX 200 ML IV SCH (01:22)
[2019-06-04] MEDS: CEFAZOLIN 1000MG PREMIX 50 ML IV SCH ×3 (01:31→18:12)
[2019-06-04 06:00] LABS: BASOPHILS % 0.1 % (0.0-2.0); EOSINOPHILS % 1.5 % (0.0-5.0); HEMATOCRIT. 23.9 % (42.0-52.0); LYMPHOCYTES % 7.4 % (20.0-50.0); MEAN CORPUSCULAR HEMOGLOBIN 28.1 pg (28.0-32.0); MEAN CORPUSCULAR VOLUME 84.4 fL (80.0-94.0); MEAN PLATELET VOLUME 9.2 fl (7.4-10.4); MONOCYTES % 7.8 % (2.0-8.0); NEUTROPHILS % 83.2 % (40.0-76.0); PLATELET 265 x1000/uL (130-400); RED BLOOD CELL COUNT 2.83 mill/uL (4.7-6.1); RED CELL DISTRIBUTION WIDTH 17.1 % (11.6-14.6)
[2019-06-04] MEDS: BLOOD SUGAR DIAGNOSTIC STRIP TEST SCH ×4 (06:14→17:39)
[2019-06-04] MEDS: INSULIN LISPRO 100 UNITS/ML SUBCUT SCH ×4 (06:17→17:40)
[2019-06-04 07:29] LABS: CHLORIDE 114 mEq/L (98-107)
[2019-06-04] MEDS: PANTOPRAZOLE 40MG DR TABLET PO SCH ×2 (10:07→18:11)
[2019-06-04] MEDS: SODIUM CHLORIDE 0.9% 1,000 ML IV SCH ×2 (10:07→21:19)
[2019-06-04] MEDS ORDERED: POTASSIUM CHLORIDE 20MEQ/PACKET PO SCH (10:15)
[2019-06-04] MEDS: ATORVASTATIN CALCIUM 40MG TABLET PO SCH (21:19)
[2019-06-05] VITALS (12 sets, daily range): BP systolic 130–173; BP diastolic 41–94
[2019-06-05] MEDS: BLOOD SUGAR DIAGNOSTIC STRIP TEST SCH ×4 (00:24→17:47)
[2019-06-05] MEDS: CEFAZOLIN 1000MG PREMIX 50 ML IV SCH ×3 (00:46→17:45)
[2019-06-05] MEDS: INSULIN LISPRO 100 UNITS/ML SUBCUT SCH ×4 (05:41→18:00)
[2019-06-05] MEDS: PANTOPRAZOLE 40MG DR TABLET PO SCH ×2 (08:55→17:45)
[2019-06-05 09:28] LABS: BASOPHILS % 0.3 % (0.0-2.0); EOSINOPHILS % 2.9 % (0.0-5.0); HEMATOCRIT. 25.9 % (42.0-52.0); HEMOGLOBIN. 8.4 g/dL (14.0-18.0); LYMPHOCYTES % 10.5 % (20.0-50.0); MEAN CORPUSCULAR HEMOGLOBIN 27.6 pg (28.0-32.0); MEAN CORPUSCULAR VOLUME 85.1 fL (80.0-94.0); MEAN PLATELET VOLUME 8.5 fl (7.4-10.4); MONOCYTES % 10.8 % (2.0-8.0); NEUTROPHILS % 75.5 % (40.0-76.0); PLATELET 277 x1000/uL (130-400); RED BLOOD CELL COUNT 3.04 mill/uL (4.7-6.1); RED CELL DISTRIBUTION WIDTH 16.8 % (11.6-14.6)
[2019-06-05 09:36] LABS: CHLORIDE 112 mEq/L (98-107)
[2019-06-05] MEDS: SODIUM CHLORIDE 0.9% 1,000 ML IV SCH (12:30)
[2019-06-05] MEDS: ACETAMINOPHEN 325MG TABLET PO PRN ×2 (13:13→20:14)
[2019-06-05] MEDS: AMLODIPINE 5MG TABLET PO SCH (17:47)
[2019-06-05] MEDS: ATORVASTATIN CALCIUM 40MG TABLET PO SCH (20:13)
[2019-06-05] MEDS: ATENOLOL 50 MG TABLET PO SCH (20:14)
[2019-06-06] VITALS (12 sets, daily range): BP systolic 138–179; BP diastolic 55–83
[2019-06-06] MEDS: CEFAZOLIN 1000MG PREMIX 50 ML IV SCH ×3 (01:26→16:44)
[2019-06-06] MEDS: ACETAMINOPHEN 325MG TABLET PO PRN (01:27)
[2019-06-06] MEDS: SODIUM CHLORIDE 0.9% 1,000 ML IV SCH ×2 (02:06→16:45)
[2019-06-06] MEDS: BLOOD SUGAR DIAGNOSTIC STRIP TEST SCH ×4 (05:29→17:56)
[2019-06-06] MEDS: INSULIN LISPRO 100 UNITS/ML SUBCUT SCH ×4 (05:29→17:56)
[2019-06-06 06:52] LABS: BASOPHILS % 0.5 % (0.0-2.0); EOSINOPHILS % 3.5 % (0.0-5.0); HEMATOCRIT. 26.3 % (42.0-52.0); HEMOGLOBIN. 8.5 g/dL (14.0-18.0); LYMPHOCYTES % 16.8 % (20.0-50.0); MEAN CORPUSCULAR HEMOGLOBIN 27.2 pg (28.0-32.0); MEAN CORPUSCULAR VOLUME 84.4 fL (80.0-94.0); MEAN PLATELET VOLUME 9.2 fl (7.4-10.4); MONOCYTES % 10.1 % (2.0-8.0); NEUTROPHILS % 69.1 % (40.0-76.0); PLATELET 284 x1000/uL (130-400); RED BLOOD CELL COUNT 3.11 mill/uL (4.7-6.1); RED CELL DISTRIBUTION WIDTH 17.1 % (11.6-14.6)
[2019-06-06 07:12] LABS: CHLORIDE 111 mEq/L (98-107)
[2019-06-06] MEDS: PANTOPRAZOLE 40MG DR TABLET PO SCH ×2 (08:21→16:45)
[2019-06-06] MEDS: ATENOLOL 50 MG TABLET PO SCH ×2 (08:21→20:53)
[2019-06-06] MEDS: AMLODIPINE 5MG TABLET PO SCH ×2 (08:22→20:52)
[2019-06-06] MEDS ORDERED: HYDROCODONE/ACETAMINOPHEN 5/325MG TABLET PO PRN (13:30)
[2019-06-06] MEDS ORDERED: SORBITOL 70% SOLN 30ML PO SCH ×2 (16:00→20:00)
[2019-06-06] MEDS: ATORVASTATIN CALCIUM 40MG TABLET PO SCH (20:52)
[2019-06-07] VITALS (10 sets, daily range): BP systolic 134–177; BP diastolic 65–92
[2019-06-07] MEDS: CEFAZOLIN 1000MG PREMIX 50 ML IV SCH ×3 (01:00→16:17)
[2019-06-07] MEDS: SODIUM CHLORIDE 0.9% 1,000 ML IV SCH ×2 (05:41→21:34)
[2019-06-07] MEDS: INSULIN LISPRO 100 UNITS/ML SUBCUT SCH ×3 (06:00→17:05)
[2019-06-07] MEDS: BLOOD SUGAR DIAGNOSTIC STRIP TEST SCH ×3 (06:01→17:06)
[2019-06-07] MEDS ORDERED: NA PHOS,M-B/NA PHOS,DI-BA ENEMA 118ML PR NR (07:00)
[2019-06-07 07:29] LABS: BASOPHILS % 0.6 % (0.0-2.0); EOSINOPHILS % 2.6 % (0.0-5.0); HEMATOCRIT. 29.9 % (42.0-52.0); HEMOGLOBIN. 9.5 g/dL (14.0-18.0); LYMPHOCYTES % 18.2 % (20.0-50.0); MEAN CORPUSCULAR HEMOGLOBIN 26.8 pg (28.0-32.0); MEAN CORPUSCULAR VOLUME 84.3 fL (80.0-94.0); MEAN PLATELET VOLUME 9.3 fl (7.4-10.4); MONOCYTES % 8.5 % (2.0-8.0); NEUTROPHILS % 70.1 % (40.0-76.0); PLATELET 332 x1000/uL (130-400); RED BLOOD CELL COUNT 3.55 mill/uL (4.7-6.1); RED CELL DISTRIBUTION WIDTH 17.3 % (11.6-14.6)
[2019-06-07 07:40] LABS: CHLORIDE 113 mEq/L (98-107); PARTIAL THROMBOPLASTIN TIME 28.7 sec (23.4-31.0); PROTHROMBIN TIME 10.6 sec (9.6-11.0)
[2019-06-07] MEDS: AMLODIPINE 5MG TABLET PO SCH ×2 (08:36→21:35)
[2019-06-07] MEDS: ATENOLOL 50 MG TABLET PO SCH ×2 (08:36→21:35)
[2019-06-07] MEDS: PANTOPRAZOLE 40MG DR TABLET PO SCH ×2 (08:36→17:03)
[2019-06-07] MEDS ORDERED: FENTANYL CITRATE/PF 50MCG/ML 2ML VIAL ONE (11:16)
[2019-06-07] MEDS ORDERED: MIDAZOLAM HCL 5 MG/5 ML VIAL ONE (11:16)
[2019-06-07] MEDS ORDERED: SIMETHICONE 40 MG/0.6 ML 30ML ONE (11:18)
[2019-06-07] MEDS ORDERED: MIDAZOLAM HCL 5 MG/5 ML VIAL IV PRN (11:42)
[2019-06-07] MEDS ORDERED: SORBITOL 70% SOLN 30ML PO NR (16:00)
[2019-06-07] MEDS: ATORVASTATIN CALCIUM 40MG TABLET PO SCH (21:34)
[2019-06-08] VITALS (13 sets, daily range): BP systolic 115–162; BP diastolic 52–90
[2019-06-08] MEDS: CEFAZOLIN 1000MG PREMIX 50 ML IV SCH ×3 (00:47→17:43)
[2019-06-08] MEDS: BLOOD SUGAR DIAGNOSTIC STRIP TEST SCH ×4 (00:47→17:42)
[2019-06-08] MEDS ORDERED: SORBITOL 70% SOLN 30ML PO NR (06:00)
[2019-06-08] MEDS: INSULIN LISPRO 100 UNITS/ML SUBCUT SCH ×4 (06:00→17:43)
[2019-06-08] MEDS: PANTOPRAZOLE 40MG DR TABLET PO SCH ×2 (08:14→17:43)
[2019-06-08] MEDS: AMLODIPINE 5MG TABLET PO SCH ×2 (08:41→20:24)
[2019-06-08] MEDS: ATENOLOL 50 MG TABLET PO SCH ×2 (08:42→20:24)
[2019-06-08] MEDS ORDERED: NA PHOS,M-B/NA PHOS,DI-BA ENEMA 118ML PR SCH (10:15)
[2019-06-08] MEDS: SODIUM CHLORIDE 0.9% 1,000 ML IV SCH (11:19)
[2019-06-08] MEDS ORDERED: FENTANYL CITRATE/PF 50MCG/ML 2ML VIAL ONE (14:44)
[2019-06-08] MEDS ORDERED: MIDAZOLAM HCL 5 MG/5 ML VIAL ONE (14:44)
[2019-06-08] MEDS ORDERED: FENTANYL CITRATE/PF 50MCG/ML 2ML VIAL IV PRN (14:51)
[2019-06-08] MEDS ORDERED: MIDAZOLAM HCL 5 MG/5 ML VIAL IV PRN (14:52)
[2019-06-08] MEDS: ATORVASTATIN CALCIUM 40MG TABLET PO SCH (20:24)
== END 2019-06-08 23:00 | DRG 871 ==
LOC: ER 17:13 → EDBEDREQTM 18:42 → EDBEDREQ 18:42 → ENRESERV 20:31 → 5EST 21:48
PROVIDERS: ADMIT Internal Medicine; ATTEND Internal Medicine
PROC: 0DB68ZX Excision of Stomach, Via Natural or Artificial Opening Endoscopic, Diagnostic (ICD-10-PCS; principal; 2019-06-08)
PROC: 0DBK8ZX Excision of Ascending Colon, Via Natural or Artificial Opening Endoscopic, Diagnostic (ICD-10-PCS; 2019-06-08)
PROC: 0DBL8ZX Excision of Transverse Colon, Via Natural or Artificial Opening Endoscopic, Diagnostic (ICD-10-PCS; 2019-06-08)
PROC: 0DBP8ZX Excision of Rectum, Via Natural or Artificial Opening Endoscopic, Diagnostic (ICD-10-PCS; 2019-06-08)
PROC: 30233N1 Transfusion of Nonautologous Red Blood Cells into Peripheral Vein, Percutaneous Approach (ICD-10-PCS; 2019-06-08)
PROC: 0DB98ZX Excision of Duodenum, Via Natural or Artificial Opening Endoscopic, Diagnostic (ICD-10-PCS; 2019-06-08)
DX: A41.9 Sepsis, unspecified organism (principal); G92 Toxic encephalopathy; I63.81 Other cerebral infarction due to occlusion or stenosis of small artery; K29.71 Gastritis, unspecified, with bleeding; K29.81 Duodenitis with bleeding; I69.354 Hemiplegia and hemiparesis following cerebral infarction affecting left non-dominant side; N39.0 Urinary tract infection, site not specified; E87.6 Hypokalemia; R65.20 Severe sepsis without septic shock; K44.9 Diaphragmatic hernia without obstruction or gangrene; D17.9 Benign lipomatous neoplasm, unspecified; D64.9 Anemia, unspecified; I11.9 Hypertensive heart disease without heart failure; I25.10 Atherosclerotic heart disease of native coronary artery without angina pectoris; F03.90 Unspecified dementia, unspecified severity, without behavioral disturbance, psychotic disturbance, mood disturbance, and anxiety; E11.9 Type 2 diabetes mellitus without complications; K56.41 Fecal impaction; Z66 Do not resuscitate; D50.9 Iron deficiency anemia, unspecified; D72.821 Monocytosis (symptomatic); E78.00 Pure hypercholesterolemia, unspecified; E78.5 Hyperlipidemia, unspecified; K52.9 Noninfective gastroenteritis and colitis, unspecified; K62.1 Rectal polyp; Z79.84 Long term (current) use of oral hypoglycemic drugs; Z93.1 Gastrostomy status; I25.2 Old myocardial infarction; Z79.899 Other long term (current) drug therapy
CPT/HCPCS: 36415; 70551; 71045; 74177; 80048; 80053; 80061; 81003; 82140; 82270; 82607; 82746; 82962; 83036; 83605; 83735; 83880; 84100; 84145; 84439; 84443; 84481; 84484; 85014; 85018; 85025; 85027; 86677; 86850; 86900; 86920; 87077; 87186; 88305; 88313; 92610; 93005; 93306; 93880; 93970; 96365; 99291; J0690; J2250; J2543; J3010; J3370; J7030; J7040; J7060; P9016; P9021

== ENCOUNTER 2019-07-09 19:17 | Inpatient (IN) | payer MEDICARE, MEDICAID ==
[~2019-07-09] VITALS: Ht 154.3 cm; Wt 69.9 kg
[2019-07-09] MEDS ORDERED: VANCOMYCIN 1 G PREMIX 200 ML IV ONE (19:30)
[2019-07-09] MEDS ORDERED: PIPERACILLIN/TAZ 3.375G PREMIX 50 ML IV ONE (19:30)
[2019-07-09] MEDS ORDERED: ETOMIDATE 2MG/ML 10ML VIAL IV ONE ×2 (19:45→19:55)
[2019-07-09] MEDS ORDERED: NOREPINEPHRINE 4MG/250ML PMX 250 ML IV ONE ×2 (19:45→19:48)
[2019-07-09] MEDS ORDERED: PROPOFOL 10MG/ML 100ML 100 ML IV ONE (19:45)
[2019-07-09] MEDS ORDERED: VECURONIUM BROMIDE 10 MG/VIAL IV ONE ×2 (19:55→20:00)
[2019-07-09] MEDS ORDERED: ACETAMINOPHEN 650MG SUPP PR ONE (20:30)
[2019-07-09] MEDS ORDERED: SODIUM CHLORIDE 0.9% 1000ML BAG (SEPSIS BOLUS) IV ONE (20:30)
[2019-07-09 20:42] LABS: BG BASE EXCESS -1.4 mmol/L (-2.0-2.0); BG CARBOXYHEMOGLOBIN 0.3 % (0.5-1.5); BG DEOXYHEMOGLOBIN 1.6 % (0.0-5.0); BG FRACTION INSPIRED OXYGEN 100; BG HCO3 ACT 24.8 mmol/L (22.0-26.0); BG METHEMOGLOBIN 0.2 % (0.0-1.5); BG OXYGEN SATURATION 98.4 % (92.0-98.5); BG OXYHEMOGLOBIN 97.9 % (94.0-97.0); BG PCO2 48.3 mmHg (35.0-45.0); BG PH 7.328 (7.350-7.450); BG PO2 171.7 mmHg (75.0-100.0); BG SAMPLE SITE RIGHT RADIAL; BG TIDAL VOLUME(mL) 500 mL; BG TOTAL HEMOGLOBIN 10.4 g/dL (12.0-18.0); BG VENT MODE VENT - A/C; BG VENT RATE 14 set
[2019-07-09 22:28] LABS: BASOPHILS % 0.1 % (0.0-2.0); LYMPHOCYTES % 8.9 % (20.0-50.0); MEAN CORPUSCULAR HEMOGLOBIN 24.7 pg (28.0-32.0); MEAN CORPUSCULAR VOLUME 79.1 fL (80.0-94.0); MEAN PLATELET VOLUME 12.3 fl (7.4-10.4); MONOCYTES % 10.6 % (2.0-8.0); NEUTROPHILS % 80.4 % (40.0-76.0); PLATELET 129 x1000/uL (130-400); RED BLOOD CELL COUNT 2.74 mill/uL (4.7-6.1); RED CELL DISTRIBUTION WIDTH 18.2 % (11.6-14.6)
[2019-07-09 22:36] LABS: HEMOGLOBIN. 6.7 g/dL (14.0-18.0)
[2019-07-09 22:37] LABS: HEMATOCRIT. 21.6 % (42.0-52.0)
[2019-07-09 22:41] LABS: CLARITY URINE CLEAR (CLEAR); COLOR URINE YELLOW (YELLOW); KETONES URINE NEGATIVE (NEGATIVE); LEUKOCYTE ESTERASE URINE TRACE (NEGATIVE); NITRITE URINE NEGATIVE (NEGATIVE); OCCULT BLOOD URINE NEGATIVE (NEGATIVE); PROTEIN URINE NEGATIVE (NEGATIVE); SPECIFIC GRAVITY URINE 1.016 (1.005-1.030); UROBILINOGEN URINE 0.2 E.U./dL (0.2-1.0)
[2019-07-09 22:44] LABS: CHLORIDE 109 mEq/L (98-107)
[2019-07-10] VITALS (11 sets, daily range): BP systolic 66–124; BP diastolic 48–73
[2019-07-10] MEDS ORDERED: DOPAMINE 400MG/250ML PREMIX 250 ML IV ONE (01:33)
[2019-07-10] MEDS: DOPAMINE 400MG/250ML PREMIX 250 ML IV PRN ×3 (02:26→23:55)
[2019-07-10] MEDS: ACETAMINOPHEN 325MG TABLET PO PRN (02:26)
[2019-07-10] MEDS ORDERED: MIDAZOLAM HCL 50 MG in DEXTROSE 5% WATER 50ML IV PRN (03:00)
[2019-07-10] MEDS ORDERED: NOREPINEPHRINE 4 MG in DEXTROSE 5% WATER 250 ML IV PRN (04:45)
[2019-07-10] MEDS ORDERED: MIDAZOLAM HCL 50 MG in DEXTROSE 5% WATER 40 ML IV PRN (05:00)
[2019-07-10] MEDS ORDERED: DOPAMINE 400MG/250ML PREMIX 250 ML IV PRN (05:00)
[2019-07-10] MEDS ORDERED: METOCLOPRAMIDE HCL 10MG/2ML VIAL IV PRN (10:00)
[2019-07-10 10:34] LABS: BASOPHILS % 0.1 % (0.0-2.0); HEMATOCRIT. 27.5 % (42.0-52.0); HEMOGLOBIN. 8.8 g/dL (14.0-18.0); LYMPHOCYTES % 9.3 % (20.0-50.0); MEAN CORPUSCULAR HEMOGLOBIN 25.8 pg (28.0-32.0); MEAN CORPUSCULAR VOLUME 81.1 fL (80.0-94.0); MEAN PLATELET VOLUME 11.8 fl (7.4-10.4); MONOCYTES % 6.1 % (2.0-8.0); NEUTROPHILS % 84.5 % (40.0-76.0); PLATELET 136 x1000/uL (130-400); RED CELL DISTRIBUTION WIDTH 17.2 % (11.6-14.6)
[2019-07-10] MEDS: SODIUM CHLORIDE 0.45% 1,000 ML IV SCH (10:53)
[2019-07-10] MEDS ORDERED: CEFEPIME 1,000 MG in DEXTROSE 5% WATER 50 ML IV SCH (11:00)
[2019-07-10] MEDS ORDERED: NOREPINEPHRINE 32 MG in DEXT 5% WATER 468 ML IV PRN (13:00)
[2019-07-10] MEDS ORDERED: FERROUS SULFATE 300MG/5ML UDC PO SCH (17:00)
[2019-07-10] MEDS ORDERED: THIAMINE HCL 100MG TABLET PO SCH (17:00)
[2019-07-10] MEDS ORDERED: NOREPINEPHRINE 4MG/250ML PMX 250 ML IV PRN (17:45)
[2019-07-10] MEDS ORDERED: ASCORBIC ACID 500 MG TABLET PO SCH (21:00)
[2019-07-10] MEDS: HYDROXYCHLOROQUINE SULFATE 200MG TABLET PO SCH (22:48)
[2019-07-10] MEDS: THIAMINE HCL 100MG TABLET PO SCH (22:48)
[2019-07-10] MEDS: ASCORBIC ACID 500 MG TABLET PO SCH (22:49)
[2019-07-10] MEDS ORDERED: MIDAZOLAM HCL 100 MG in DEXT 5% WATER 80 ML IV PRN (23:00)
[2019-07-10] MEDS ORDERED: AZITHROMYCIN 500 MG TABLET PO NR (23:00)
[2019-07-10] MEDS: NOREPINEPHRINE 32 MG in DEXT 5% WATER 468 ML IV PRN (23:54)
[2019-07-11] VITALS (95 sets, daily range): BP systolic 60–148; BP diastolic 40–84
[2019-07-11] MEDS ORDERED: PROPOFOL 10MG/ML 100ML 100 ML IV PRN (02:15)
[2019-07-11] MEDS: ACETAMINOPHEN 325MG TABLET PO PRN ×2 (05:44→21:03)
[2019-07-11] MEDS: SODIUM CHLORIDE 0.45% 1,000 ML IV SCH (05:55)
[2019-07-11 06:41] LABS: CHLORIDE 112 mEq/L (98-107)
[2019-07-11] MEDS: FERROUS SULFATE 300MG/5ML UDC PO SCH ×3 (06:43→18:37)
[2019-07-11 06:47] LABS: TOTAL IRON BINDING CAPACITY 258 ug/dL (250-450)
[2019-07-11 07:20] LABS: INR 0.9; PROTHROMBIN TIME 10.1 sec (9.6-11.0)
[2019-07-11 07:55] LABS: BG BASE EXCESS -1.5 mmol/L (-2.0-2.0); BG CARBOXYHEMOGLOBIN 0.3 % (0.5-1.5); BG DEOXYHEMOGLOBIN 2.9 % (0.0-5.0); BG HCO3 ACT 21.6 mmol/L (22.0-26.0); BG METHEMOGLOBIN 0.3 % (0.0-1.5); BG OXYGEN SATURATION 97.1 % (92.0-98.5); BG OXYHEMOGLOBIN 96.5 % (94.0-97.0); BG PCO2 29.8 mmHg (35.0-45.0); BG PH 7.478 (7.350-7.450); BG PO2 93.9 mmHg (75.0-100.0); BG SAMPLE SITE RIGHT RADIAL; BG TIDAL VOLUME(mL) 470 mL; BG TOTAL HEMOGLOBIN 7.8 g/dL (12.0-18.0); BG VENT MODE VENT - A/C; BG VENT RATE 16 set
[2019-07-11 08:26] LABS: BASOPHILS % 0.2 % (0.0-2.0); EOSINOPHILS % 0.1 % (0.0-5.0); LYMPHOCYTES % 8.7 % (20.0-50.0); MEAN CORPUSCULAR HEMOGLOBIN 25.6 pg (28.0-32.0); PLATELET 150 x1000/uL (130-400); RED BLOOD CELL COUNT 2.89 mill/uL (4.7-6.1); RED CELL DISTRIBUTION WIDTH 17.2 % (11.6-14.6)
[2019-07-11 08:27] LABS: C REACTIVE PROTEIN QUANT > 190.0 mg/L (0.0-3.0)
[2019-07-11 08:30] LABS: HEMATOCRIT. 23.1 % (42.0-52.0); HEMOGLOBIN. 7.4 g/dL (14.0-18.0)
[2019-07-11] MEDS: ZINC SULFATE 220 MG ( 50 ) CAPSULE PO SCH (09:51)
[2019-07-11] MEDS: PANTOPRAZOLE SODIUM 40 MG/VIAL IV SCH (09:51)
[2019-07-11] MEDS: THIAMINE HCL 100MG TABLET PO SCH ×2 (09:52→18:38)
[2019-07-11] MEDS: ASCORBIC ACID 500 MG TABLET PO SCH ×2 (09:52→21:02)
[2019-07-11] MEDS: DOPAMINE 400MG/250ML PREMIX 250 ML IV PRN (11:40)
[2019-07-11] MEDS: CEFEPIME 1,000 MG in DEXTROSE 5% WATER 50 ML IV SCH (11:56)
[2019-07-11] MEDS: HYDROXYCHLOROQUINE SULFATE 200MG TABLET PO SCH ×2 (11:57→21:01)
[2019-07-11] MEDS: MIDAZOLAM HCL 100 MG in DEXT 5% WATER 80 ML IV PRN (14:50)
[2019-07-11] MEDS: NOREPINEPHRINE 32 MG in DEXT 5% WATER 468 ML IV PRN (16:43)
[2019-07-11] MEDS ORDERED: FERROUS SULFATE 300MG/5ML UDC PO SCH (17:00)
[2019-07-11] MEDS: AZITHROMYCIN 250 MG TABLET PO SCH (21:02)
[2019-07-11] MEDS: LINEZOLID 600 MG PREMIX 300 ML IV SCH (23:01)
[2019-07-12] VITALS (96 sets, daily range): BP systolic 70–179; BP diastolic 44–82
[2019-07-12] MEDS ORDERED: VANCOMYCIN 1500MG in DEXTROSE 5% WATER 250ML IV SCH (02:00)
[2019-07-12] MEDS: SODIUM CHLORIDE 0.45% 1,000 ML IV SCH ×2 (03:02→22:45)
[2019-07-12 06:20] LABS: HEMOGLOBIN. 7.1 g/dL (14.0-18.0); MEAN CORPUSCULAR VOLUME 80.5 fL (80.0-94.0); MEAN PLATELET VOLUME 11.2 fl (7.4-10.4); PLATELET 151 x1000/uL (130-400); RED BLOOD CELL COUNT 2.74 mill/uL (4.7-6.1); RED CELL DISTRIBUTION WIDTH 17.1 % (11.6-14.6)
[2019-07-12 06:30] LABS: CHLORIDE 113 mEq/L (98-107)
[2019-07-12] MEDS: FERROUS SULFATE 300MG/5ML UDC PO SCH ×3 (06:47→17:08)
[2019-07-12] MEDS: ZINC SULFATE 220 MG ( 50 ) CAPSULE PO SCH (08:26)
[2019-07-12] MEDS: LINEZOLID 600 MG PREMIX 300 ML IV SCH ×2 (08:26→20:49)
[2019-07-12] MEDS: THIAMINE HCL 100MG TABLET PO SCH ×2 (08:26→17:09)
[2019-07-12] MEDS: HYDROXYCHLOROQUINE SULFATE 200MG TABLET PO SCH (08:26)
[2019-07-12] MEDS: ASCORBIC ACID 500 MG TABLET PO SCH ×2 (08:26→20:58)
[2019-07-12] MEDS: PANTOPRAZOLE SODIUM 40 MG/VIAL IV SCH (08:27)
[2019-07-12 09:34] LABS: BG BASE EXCESS -1.2 mmol/L (-2.0-2.0); BG CARBOXYHEMOGLOBIN 0.3 % (0.5-1.5); BG DEOXYHEMOGLOBIN 1.2 % (0.0-5.0); BG FRACTION INSPIRED OXYGEN 55; BG HCO3 ACT 21.4 mmol/L (22.0-26.0); BG METHEMOGLOBIN 0.4 % (0.0-1.5); BG OXYGEN SATURATION 98.8 % (92.0-98.5); BG OXYHEMOGLOBIN 98.1 % (94.0-97.0); BG PCO2 26.6 mmHg (35.0-45.0); BG PH 7.524 (7.350-7.450); BG PO2 146.7 mmHg (75.0-100.0); BG SAMPLE SITE RIGHT RADIAL; BG TIDAL VOLUME(mL) 500 mL; BG TOTAL HEMOGLOBIN 6.4 g/dL (12.0-18.0); BG VENT MODE VENT - A/C; BG VENT RATE 14 set
[2019-07-12 10:40] LABS: PLATELET ESTIMATE NORMAL
[2019-07-12] MEDS: CEFEPIME 1,000 MG in DEXTROSE 5% WATER 50 ML IV SCH (12:09)
[2019-07-12] MEDS ORDERED: VANCOMYCIN 750 MG PREMIX 150 ML IV SCH (14:00)
[2019-07-12] MEDS: NOREPINEPHRINE 32 MG in DEXT 5% WATER 468 ML IV PRN (20:15)
[2019-07-12] MEDS: AZITHROMYCIN 250 MG TABLET PO SCH (20:58)
[2019-07-13] VITALS (102 sets, daily range): BP systolic 72–153; BP diastolic 49–89
[2019-07-13 06:20] LABS: BASOPHILS % 0.3 % (0.0-2.0); EOSINOPHILS % 2.2 % (0.0-5.0); MEAN CORPUSCULAR HEMOGLOBIN 25.9 pg (28.0-32.0); MEAN PLATELET VOLUME 10.5 fl (7.4-10.4); MONOCYTES % 10.7 % (2.0-8.0); NEUTROPHILS % 66.8 % (40.0-76.0); PLATELET 161 x1000/uL (130-400); RED BLOOD CELL COUNT 2.45 mill/uL (4.7-6.1); RED CELL DISTRIBUTION WIDTH 17.1 % (11.6-14.6)
[2019-07-13 06:31] LABS: HEMATOCRIT. 19.8 % (42.0-52.0); HEMOGLOBIN. 6.3 g/dL (14.0-18.0)
[2019-07-13 06:36] LABS: CHLORIDE 113 mEq/L (98-107)
[2019-07-13] MEDS: FERROUS SULFATE 300MG/5ML UDC PO SCH ×3 (06:40→16:59)
[2019-07-13] MEDS: THIAMINE HCL 100MG TABLET PO SCH ×2 (08:44→16:59)
[2019-07-13] MEDS: PANTOPRAZOLE SODIUM 40 MG/VIAL IV SCH (08:44)
[2019-07-13] MEDS: LINEZOLID 600 MG PREMIX 300 ML IV SCH ×2 (08:44→20:03)
[2019-07-13] MEDS: ZINC SULFATE 220 MG ( 50 ) CAPSULE PO SCH (08:44)
[2019-07-13 08:45] LABS: BG BASE EXCESS -0.8 mmol/L (-2.0-2.0); BG CARBOXYHEMOGLOBIN 0.2 % (0.5-1.5); BG DEOXYHEMOGLOBIN 4.1 % (0.0-5.0); BG FRACTION INSPIRED OXYGEN 40; BG HCO3 ACT 22.5 mmol/L (22.0-26.0); BG METHEMOGLOBIN 0.3 % (0.0-1.5); BG OXYGEN SATURATION 95.9 % (92.0-98.5); BG OXYHEMOGLOBIN 95.4 % (94.0-97.0); BG PCO2 30.7 mmHg (35.0-45.0); BG PH 7.482 (7.350-7.450); BG PO2 77.8 mmHg (75.0-100.0); BG SAMPLE SITE RIGHT RADIAL; BG TIDAL VOLUME(mL) 500 mL; BG VENT MODE VENT - A/C; BG VENT RATE 10 set
[2019-07-13] MEDS: ASCORBIC ACID 500 MG TABLET PO SCH ×2 (08:45→20:03)
[2019-07-13] MEDS: MIDAZOLAM HCL 100 MG in DEXT 5% WATER 80 ML IV PRN (10:25)
[2019-07-13] MEDS ORDERED: POTASSIUM CHLORIDE INJ 40 MEQ in DEXT 5% WATER 250 ML IV NR (12:30)
[2019-07-13] MEDS: CEFEPIME 1,000 MG in DEXTROSE 5% WATER 50 ML IV SCH (12:31)
[2019-07-13] MEDS: SODIUM CHLORIDE 0.45% 1,000 ML IV SCH (18:00)
[2019-07-13] MEDS: AZITHROMYCIN 250 MG TABLET PO SCH (20:03)
[2019-07-14] VITALS (90 sets, daily range): BP systolic 41–140; BP diastolic 19–103
[2019-07-14 05:50] LABS: CHLORIDE 112 mEq/L (98-107)
[2019-07-14 05:52] LABS: BASOPHILS % 0.3 % (0.0-2.0); EOSINOPHILS % 1.1 % (0.0-5.0); HEMATOCRIT. 22.9 % (42.0-52.0); HEMOGLOBIN. 7.7 g/dL (14.0-18.0); LYMPHOCYTES % 14.5 % (20.0-50.0); MEAN CORPUSCULAR HEMOGLOBIN 28.2 pg (28.0-32.0); MEAN CORPUSCULAR VOLUME 83.9 fL (80.0-94.0); MEAN PLATELET VOLUME 10.7 fl (7.4-10.4); MONOCYTES % 10.6 % (2.0-8.0); NEUTROPHILS % 73.5 % (40.0-76.0); PLATELET 170 x1000/uL (130-400); RED BLOOD CELL COUNT 2.73 mill/uL (4.7-6.1); RED CELL DISTRIBUTION WIDTH 16.8 % (11.6-14.6)
[2019-07-14] MEDS: FERROUS SULFATE 300MG/5ML UDC PO SCH ×3 (06:10→16:37)
[2019-07-14 09:05] LABS: BG BASE EXCESS -2.3 mmol/L (-2.0-2.0); BG CARBOXYHEMOGLOBIN 0.2 % (0.5-1.5); BG DEOXYHEMOGLOBIN 2.4 % (0.0-5.0); BG FRACTION INSPIRED OXYGEN 40; BG HCO3 ACT 20.7 mmol/L (22.0-26.0); BG METHEMOGLOBIN 0.3 % (0.0-1.5); BG OXYGEN SATURATION 97.6 % (92.0-98.5); BG OXYHEMOGLOBIN 97.1 % (94.0-97.0); BG PCO2 28.3 mmHg (35.0-45.0); BG PH 7.483 (7.350-7.450); BG PO2 99.7 mmHg (75.0-100.0); BG SAMPLE SITE RIGHT RADIAL; BG TIDAL VOLUME(mL) 550 mL; BG TOTAL HEMOGLOBIN 7.2 g/dL (12.0-18.0); BG VENT MODE VENT - A/C; BG VENT RATE 10 set
[2019-07-14] MEDS: ASCORBIC ACID 500 MG TABLET PO SCH ×2 (10:24→20:13)
[2019-07-14] MEDS: ZINC SULFATE 220 MG ( 50 ) CAPSULE PO SCH (10:24)
[2019-07-14] MEDS: SODIUM CHLORIDE 0.45% 1,000 ML IV SCH (10:29)
[2019-07-14] MEDS: PANTOPRAZOLE SODIUM 40 MG/VIAL IV SCH (10:38)
[2019-07-14] MEDS: THIAMINE HCL 100MG TABLET PO SCH ×2 (10:38→16:37)
[2019-07-14] MEDS: MIDAZOLAM HCL 100 MG in DEXT 5% WATER 80 ML IV PRN (14:00)
[2019-07-14] MEDS: CEFEPIME 1,000 MG in DEXTROSE 5% WATER 50 ML IV SCH (14:04)
[2019-07-14] MEDS: AZITHROMYCIN 250 MG TABLET PO SCH (20:12)
[2019-07-15] VITALS (96 sets, daily range): BP systolic 85–148; BP diastolic 54–97
[2019-07-15] MEDS: MIDAZOLAM HCL 100 MG in DEXT 5% WATER 80 ML IV PRN (01:00)
[2019-07-15] MEDS: FERROUS SULFATE 300MG/5ML UDC PO SCH ×3 (06:12→17:00)
[2019-07-15] MEDS: SODIUM CHLORIDE 0.45% 1,000 ML IV SCH (06:14)
[2019-07-15 06:56] LABS: CHLORIDE 112 mEq/L (98-107)
[2019-07-15 07:02] LABS: BASOPHILS % 0.3 % (0.0-2.0); EOSINOPHILS % 1.8 % (0.0-5.0); LYMPHOCYTES % 12.2 % (20.0-50.0); MEAN CORPUSCULAR HEMOGLOBIN 27.3 pg (28.0-32.0); MEAN CORPUSCULAR VOLUME 83.1 fL (80.0-94.0); MEAN PLATELET VOLUME 9.6 fl (7.4-10.4); MONOCYTES % 8.8 % (2.0-8.0); NEUTROPHILS % 76.9 % (40.0-76.0); PLATELET 208 x1000/uL (130-400); RED BLOOD CELL COUNT 2.48 mill/uL (4.7-6.1)
[2019-07-15 07:08] LABS: HEMATOCRIT. 20.6 % (42.0-52.0); HEMOGLOBIN. 6.8 g/dL (14.0-18.0)
[2019-07-15 08:30] LABS: BG BASE EXCESS -2.9 mmol/L (-2.0-2.0); BG CARBOXYHEMOGLOBIN 0.3 % (0.5-1.5); BG FRACTION INSPIRED OXYGEN 40; BG HCO3 ACT 20.1 mmol/L (22.0-26.0); BG METHEMOGLOBIN 0.3 % (0.0-1.5); BG OXYHEMOGLOBIN 96.4 % (94.0-97.0); BG PCO2 27.3 mmHg (35.0-45.0); BG PH 7.485 (7.350-7.450); BG PO2 97.5 mmHg (75.0-100.0); BG SAMPLE SITE RIGHT RADIAL; BG TIDAL VOLUME(mL) 500 mL; BG TOTAL HEMOGLOBIN 6.9 g/dL (12.0-18.0); BG VENT MODE VENT - A/C; BG VENT RATE 10 set
[2019-07-15] MEDS ORDERED: POTASSIUM CHLORIDE INJ 40 MEQ in DEXT 5% WATER 250 ML IV ONE (09:30)
[2019-07-15] MEDS: ZINC SULFATE 220 MG ( 50 ) CAPSULE PO SCH (09:51)
[2019-07-15] MEDS: PANTOPRAZOLE SODIUM 40 MG/VIAL IV SCH (09:51)
[2019-07-15] MEDS: ASCORBIC ACID 500 MG TABLET PO SCH ×2 (09:51→20:43)
[2019-07-15] MEDS: THIAMINE HCL 100MG TABLET PO SCH ×2 (09:51→17:00)
[2019-07-15] MEDS: CEFEPIME 1,000 MG in DEXTROSE 5% WATER 50 ML IV SCH (12:41)
[2019-07-15] MEDS ORDERED: FENTANYL CITRATE/PF 1,000 MCG in SODIUM CHLORIDE 0.9% 80 ML IV PRN (14:00)
[2019-07-15] MEDS ORDERED: POTASSIUM CHLORIDE 20MEQ/PACKET PO NR (14:15)
[2019-07-16] VITALS (71 sets, daily range): BP systolic 72–155; BP diastolic 52–92
[2019-07-16] MEDS: SODIUM CHLORIDE 0.45% 1,000 ML IV SCH ×2 (03:18→23:50)
[2019-07-16] MEDS: MORPHINE SULFATE 2 MG/ML CPJ (NOT FOR IM USE) IV PRN ×3 (04:51→23:45)
[2019-07-16] MEDS: FERROUS SULFATE 300MG/5ML UDC PO SCH ×3 (06:10→16:06)
[2019-07-16 08:39] LABS: BG CARBOXYHEMOGLOBIN 0.3 % (0.5-1.5); BG DEOXYHEMOGLOBIN 3.9 % (0.0-5.0); BG FRACTION INSPIRED OXYGEN 40; BG HCO3 ACT 20.5 mmol/L (22.0-26.0); BG METHEMOGLOBIN 0.3 % (0.0-1.5); BG OXYHEMOGLOBIN 95.5 % (94.0-97.0); BG PCO2 26.7 mmHg (35.0-45.0); BG PH 7.503 (7.350-7.450); BG PO2 80.8 mmHg (75.0-100.0); BG SAMPLE SITE RIGHT RADIAL; BG TIDAL VOLUME(mL) 500 mL; BG TOTAL HEMOGLOBIN 9.4 g/dL (12.0-18.0); BG VENT MODE VENT - A/C; BG VENT RATE 10 set
[2019-07-16] MEDS: PANTOPRAZOLE SODIUM 40 MG/VIAL IV SCH (09:00)
[2019-07-16] MEDS: THIAMINE HCL 100MG TABLET PO SCH ×2 (09:00→16:06)
[2019-07-16] MEDS: ZINC SULFATE 220 MG ( 50 ) CAPSULE PO SCH (09:00)
[2019-07-16] MEDS: ASCORBIC ACID 500 MG TABLET PO SCH ×2 (09:00→20:50)
[2019-07-16] MEDS: ACETAMINOPHEN 325MG TABLET PO PRN (13:33)
[2019-07-16 14:02] LABS: HEMATOCRIT 22.1 % (42.0-52.0); HEMOGLOBIN 7.3 g/dL (14.0-18.0); MEAN CORPUSCULAR VOLUME 85.1 fL (80.0-94.0); PLATELET 238 x1000/uL (130-400); RED CELL DISTRIBUTION WIDTH 17.4 % (11.6-14.6)
[2019-07-16 14:07] LABS: CHLORIDE 113 mEq/L (98-107)
[2019-07-17] VITALS (24 sets, daily range): BP systolic 101–148; BP diastolic 67–101
[2019-07-17] MEDS: MORPHINE SULFATE 2 MG/ML CPJ (NOT FOR IM USE) IV PRN (04:18)
[2019-07-17 04:34] LABS: CHLORIDE 113 mEq/L (98-107)
[2019-07-17 04:36] LABS: BASOPHILS % 0.5 % (0.0-2.0); EOSINOPHILS % 1.7 % (0.0-5.0); HEMATOCRIT. 24.2 % (42.0-52.0); HEMOGLOBIN. 8.1 g/dL (14.0-18.0); LYMPHOCYTES % 17.4 % (20.0-50.0); MEAN CORPUSCULAR HEMOGLOBIN 29.3 pg (28.0-32.0); MEAN CORPUSCULAR VOLUME 87.8 fL (80.0-94.0); MEAN PLATELET VOLUME 8.9 fl (7.4-10.4); MONOCYTES % 8.4 % (2.0-8.0); PLATELET 278 x1000/uL (130-400); RED BLOOD CELL COUNT 2.75 mill/uL (4.7-6.1); RED CELL DISTRIBUTION WIDTH 17.6 % (11.6-14.6)
[2019-07-17] MEDS: FERROUS SULFATE 300MG/5ML UDC PO SCH ×3 (06:14→17:54)
[2019-07-17] MEDS: ASCORBIC ACID 500 MG TABLET PO SCH ×2 (08:51→20:02)
[2019-07-17] MEDS: ZINC SULFATE 220 MG ( 50 ) CAPSULE PO SCH (08:51)
[2019-07-17] MEDS: PANTOPRAZOLE SODIUM 40 MG/VIAL IV SCH (08:51)
[2019-07-17] MEDS: THIAMINE HCL 100MG TABLET PO SCH ×2 (08:51→17:54)
[2019-07-17] MEDS: ACETAMINOPHEN 325MG TABLET PO PRN (09:30)
[2019-07-18] VITALS (25 sets, daily range): BP systolic 99–178; BP diastolic 63–103
[2019-07-18] MEDS: MORPHINE SULFATE 2 MG/ML CPJ (NOT FOR IM USE) IV PRN ×2 (02:40→12:09)
[2019-07-18] MEDS: FERROUS SULFATE 300MG/5ML UDC PO SCH ×3 (06:16→16:28)
[2019-07-18] MEDS: PANTOPRAZOLE SODIUM 40 MG/VIAL IV SCH (08:48)
[2019-07-18] MEDS: THIAMINE HCL 100MG TABLET PO SCH ×2 (08:48→16:28)
[2019-07-18] MEDS: ZINC SULFATE 220 MG ( 50 ) CAPSULE PO SCH (08:48)
[2019-07-18] MEDS: ASCORBIC ACID 500 MG TABLET PO SCH ×2 (08:48→20:13)
[2019-07-18 09:09] LABS: BG BASE EXCESS 0.6 mmol/L (-2.0-2.0); BG CARBOXYHEMOGLOBIN 0.2 % (0.5-1.5); BG DEOXYHEMOGLOBIN 6.1 % (0.0-5.0); BG FRACTION INSPIRED OXYGEN 40; BG METHEMOGLOBIN 0.3 % (0.0-1.5); BG OXYGEN SATURATION 93.9 % (92.0-98.5); BG OXYHEMOGLOBIN 93.4 % (94.0-97.0); BG PCO2 33.7 mmHg (35.0-45.0); BG PH 7.471 (7.350-7.450); BG PO2 72.3 mmHg (75.0-100.0); BG SAMPLE SITE RIGHT RADIAL; BG TIDAL VOLUME(mL) 500 mL; BG TOTAL HEMOGLOBIN 9.1 g/dL (12.0-18.0); BG VENT MODE VENT - A/C; BG VENT RATE 10 set
[2019-07-18] MEDS: ENOXAPARIN 40MG/0.4ML SYR SUBCUT SCH (11:00)
[2019-07-18 12:38] LABS: BASOPHILS % 0.6 % (0.0-2.0); EOSINOPHILS % 0.5 % (0.0-5.0); HEMATOCRIT. 23.6 % (42.0-52.0); HEMOGLOBIN. 7.8 g/dL (14.0-18.0); LYMPHOCYTES % 7.2 % (20.0-50.0); MEAN CORPUSCULAR HEMOGLOBIN 27.7 pg (28.0-32.0); MEAN CORPUSCULAR VOLUME 83.3 fL (80.0-94.0); MEAN PLATELET VOLUME 8.2 fl (7.4-10.4); MONOCYTES % 8.1 % (2.0-8.0); NEUTROPHILS % 83.6 % (40.0-76.0); PLATELET 356 x1000/uL (130-400); RED BLOOD CELL COUNT 2.84 mill/uL (4.7-6.1)
[2019-07-18 12:50] LABS: CHLORIDE 108 mEq/L (98-107)
[2019-07-18] MEDS: LORAZEPAM 2MG/ML CPJ IV PRN (16:29)
[2019-07-18] MEDS: ACETAMINOPHEN 325MG TABLET PO PRN (16:29)
[2019-07-19] VITALS (23 sets, daily range): BP systolic 87–146; BP diastolic 61–97
[2019-07-19 05:53] LABS: CHLORIDE 107 mEq/L (98-107)
[2019-07-19 06:09] LABS: BASOPHILS % 0.1 % (0.0-2.0); EOSINOPHILS % 0.2 % (0.0-5.0); HEMOGLOBIN. 7.4 g/dL (14.0-18.0); LYMPHOCYTES % 9.9 % (20.0-50.0); MEAN CORPUSCULAR VOLUME 85.8 fL (80.0-94.0); MEAN PLATELET VOLUME 8.5 fl (7.4-10.4); NEUTROPHILS % 80.8 % (40.0-76.0); PLATELET 353 x1000/uL (130-400); RED BLOOD CELL COUNT 2.57 mill/uL (4.7-6.1); RED CELL DISTRIBUTION WIDTH 18.1 % (11.6-14.6)
[2019-07-19] MEDS: FERROUS SULFATE 300MG/5ML UDC PO SCH ×3 (06:18→17:24)
[2019-07-19 07:43] LABS: BG DEOXYHEMOGLOBIN 3.2 % (0.0-5.0); BG HCO3 ACT 25.3 mmol/L (22.0-26.0); BG METHEMOGLOBIN 0.3 % (0.0-1.5); BG OXYGEN SATURATION 96.8 % (92.0-98.5); BG OXYHEMOGLOBIN 96.5 % (94.0-97.0); BG PCO2 33.7 mmHg (35.0-45.0); BG PH 7.494 (7.350-7.450); BG PO2 92.1 mmHg (75.0-100.0); BG SAMPLE SITE RIGHT BRACHIAL; BG TIDAL VOLUME(mL) 500 mL; BG VENT MODE VENT - SIMV; BG VENT RATE 8 set
[2019-07-19] MEDS: PANTOPRAZOLE SODIUM 40 MG/VIAL IV SCH (10:07)
[2019-07-19] MEDS: ZINC SULFATE 220 MG ( 50 ) CAPSULE PO SCH (10:08)
[2019-07-19] MEDS: THIAMINE HCL 100MG TABLET PO SCH ×2 (10:08→17:24)
[2019-07-19] MEDS: ASCORBIC ACID 500 MG TABLET PO SCH ×2 (10:08→21:00)
[2019-07-19] MEDS: ENOXAPARIN 40MG/0.4ML SYR SUBCUT SCH (10:08)
[2019-07-19] MEDS: MORPHINE SULFATE 2 MG/ML CPJ (NOT FOR IM USE) IV PRN (10:09)
[2019-07-19] MEDS: PIPERACILLIN/TAZOBACTAM 3.375 G in DEXT 5% WATER 100 ML IV SCH (22:17)
[2019-07-20] VITALS (29 sets, daily range): BP systolic 103–154; BP diastolic 65–100
[2019-07-20] MEDS: MORPHINE SULFATE 2 MG/ML CPJ (NOT FOR IM USE) IV PRN ×2 (04:35→12:30)
[2019-07-20 05:18] LABS: BASOPHILS % 0.2 % (0.0-2.0); EOSINOPHILS % 0.3 % (0.0-5.0); HEMATOCRIT. 21.1 % (42.0-52.0); LYMPHOCYTES % 7.5 % (20.0-50.0); MEAN CORPUSCULAR HEMOGLOBIN 27.8 pg (28.0-32.0); MEAN CORPUSCULAR VOLUME 85.2 fL (80.0-94.0); MEAN PLATELET VOLUME 8.5 fl (7.4-10.4); MONOCYTES % 7.7 % (2.0-8.0); NEUTROPHILS % 84.3 % (40.0-76.0); PLATELET 369 x1000/uL (130-400); RED BLOOD CELL COUNT 2.48 mill/uL (4.7-6.1); RED CELL DISTRIBUTION WIDTH 18.3 % (11.6-14.6)
[2019-07-20 05:22] LABS: CHLORIDE 108 mEq/L (98-107)
[2019-07-20 05:27] LABS: HEMOGLOBIN. 6.9 g/dL (14.0-18.0)
[2019-07-20] MEDS: PIPERACILLIN/TAZOBACTAM 3.375 G in DEXT 5% WATER 100 ML IV SCH ×3 (06:00→18:00)
[2019-07-20] MEDS: FERROUS SULFATE 300MG/5ML UDC PO SCH ×3 (07:00→16:44)
[2019-07-20 07:51] LABS: BG BASE EXCESS 2.1 mmol/L (-2.0-2.0); BG FRACTION INSPIRED OXYGEN 40; BG HCO3 ACT 25.4 mmol/L (22.0-26.0); BG METHEMOGLOBIN 0.4 % (0.0-1.5); BG OXYHEMOGLOBIN 97.6 % (94.0-97.0); BG PCO2 33.5 mmHg (35.0-45.0); BG PH 7.498 (7.350-7.450); BG PRESSURE SUPPORT 8; BG SAMPLE SITE RIGHT RADIAL; BG TOTAL HEMOGLOBIN 7.1 g/dL (12.0-18.0); BG VENT MODE VENT - CPAP
[2019-07-20] MEDS: PANTOPRAZOLE SODIUM 40 MG/VIAL IV SCH (09:42)
[2019-07-20] MEDS: ZINC SULFATE 220 MG ( 50 ) CAPSULE PO SCH (09:43)
[2019-07-20] MEDS: ENOXAPARIN 40MG/0.4ML SYR SUBCUT SCH (09:43)
[2019-07-20] MEDS: THIAMINE HCL 100MG TABLET PO SCH ×2 (09:43→16:44)
[2019-07-20] MEDS: ASCORBIC ACID 500 MG TABLET PO SCH ×2 (09:43→21:24)
[2019-07-20] MEDS: LORAZEPAM 2MG/ML CPJ IV PRN (13:57)
[2019-07-20] MEDS: ACETAMINOPHEN 325MG TABLET PO PRN ×2 (13:58→21:25)
[2019-07-20] MEDS ORDERED: VANCOMYCIN 1250MG in DEXTROSE 5% WATER 250ML IV SCH (15:30)
[2019-07-21] VITALS (25 sets, daily range): BP systolic 89–145; BP diastolic 55–89
[2019-07-21] MEDS: PIPERACILLIN/TAZOBACTAM 3.375 G in DEXT 5% WATER 100 ML IV SCH ×5 (00:14→23:03)
[2019-07-21 04:23] LABS: HEMATOCRIT. 25.5 % (42.0-52.0); HEMOGLOBIN. 8.5 g/dL (14.0-18.0); MEAN CORPUSCULAR HEMOGLOBIN 28.4 pg (28.0-32.0); MEAN CORPUSCULAR VOLUME 84.9 fL (80.0-94.0); MEAN PLATELET VOLUME 8.2 fl (7.4-10.4); PLATELET 385 x1000/uL (130-400); RED CELL DISTRIBUTION WIDTH 18.7 % (11.6-14.6)
[2019-07-21 04:28] LABS: CHLORIDE 104 mEq/L (98-107)
[2019-07-21] MEDS: ACETAMINOPHEN 325MG TABLET PO PRN ×2 (05:09→22:52)
[2019-07-21] MEDS: FERROUS SULFATE 300MG/5ML UDC PO SCH ×3 (06:46→17:47)
[2019-07-21 08:14] LABS: BG BASE EXCESS 1.3 mmol/L (-2.0-2.0); BG CARBOXYHEMOGLOBIN 0.3 % (0.5-1.5); BG DEOXYHEMOGLOBIN 1.2 % (0.0-5.0); BG FRACTION INSPIRED OXYGEN 40; BG HCO3 ACT 24.1 mmol/L (22.0-26.0); BG METHEMOGLOBIN 0.3 % (0.0-1.5); BG OXYGEN SATURATION 98.8 % (92.0-98.5); BG OXYHEMOGLOBIN 98.2 % (94.0-97.0); BG PCO2 30.5 mmHg (35.0-45.0); BG PH 7.516 (7.350-7.450); BG PO2 131.2 mmHg (75.0-100.0); BG PRESSURE SUPPORT 8; BG SAMPLE SITE RIGHT RADIAL; BG TOTAL HEMOGLOBIN 7.8 g/dL (12.0-18.0); BG VENT MODE VENT - CPAP
[2019-07-21] MEDS: ENOXAPARIN 40MG/0.4ML SYR SUBCUT SCH (08:26)
[2019-07-21] MEDS: PANTOPRAZOLE SODIUM 40 MG/VIAL IV SCH (08:26)
[2019-07-21] MEDS: THIAMINE HCL 100MG TABLET PO SCH ×2 (08:27→17:47)
[2019-07-21] MEDS: ZINC SULFATE 220 MG ( 50 ) CAPSULE PO SCH (08:27)
[2019-07-21] MEDS: ASCORBIC ACID 500 MG TABLET PO SCH ×2 (08:27→20:02)
[2019-07-21 08:41] LABS: PLATELET ESTIMATE NORMAL
[2019-07-21] MEDS: VANCOMYCIN 1 G PREMIX 200 ML IV SCH (09:21)
[2019-07-21] MEDS: MORPHINE SULFATE 2 MG/ML CPJ (NOT FOR IM USE) IV PRN (18:52)
[2019-07-22] VITALS: BP 130/64
[2019-07-22 04:00] VITALS: BP 130/77
[2019-07-22] MEDS: VANCOMYCIN 1 G PREMIX 200 ML IV SCH ×2 (04:28→21:39)
[2019-07-22] MEDS: FERROUS SULFATE 300MG/5ML UDC PO SCH ×3 (06:28→17:04)
[2019-07-22] MEDS: PIPERACILLIN/TAZOBACTAM 3.375 G in DEXT 5% WATER 100 ML IV SCH ×3 (07:37→17:04)
[2019-07-22 08:00] VITALS: BP 115/67
[2019-07-22] MEDS: ENOXAPARIN 40MG/0.4ML SYR SUBCUT SCH (08:37)
[2019-07-22] MEDS: AMLODIPINE 5MG TABLET PO SCH ×2 (08:38→21:39)
[2019-07-22] MEDS: ASPIRIN 81MG TABLET PO SCH (08:38)
[2019-07-22] MEDS: CLOPIDOGREL 75MG TABLET PO SCH (08:38)
[2019-07-22] MEDS: FAMOTIDINE 20MG TABLET PO SCH ×2 (08:38→17:05)
[2019-07-22] MEDS: ZINC SULFATE 220 MG ( 50 ) CAPSULE PO SCH (08:38)
[2019-07-22] MEDS: ASCORBIC ACID 500 MG TABLET PO SCH ×2 (08:38→21:38)
[2019-07-22] MEDS: LISINOPRIL 10MG TABLET PO SCH ×2 (08:39→21:39)
[2019-07-22] MEDS: THIAMINE HCL 100MG TABLET PO SCH ×2 (08:39→17:05)
[2019-07-22] MEDS: ACETAMINOPHEN 325MG TABLET PO PRN (08:39)
[2019-07-22] MEDS: ATENOLOL 50 MG TABLET PO SCH ×3 (08:39→21:39)
[2019-07-22 09:40] LABS: BASOPHILS % 0.3 % (0.0-2.0); EOSINOPHILS % 0.5 % (0.0-5.0); HEMATOCRIT. 29.6 % (42.0-52.0); HEMOGLOBIN. 9.6 g/dL (14.0-18.0); LYMPHOCYTES % 10.7 % (20.0-50.0); MEAN CORPUSCULAR HEMOGLOBIN 26.8 pg (28.0-32.0); MEAN CORPUSCULAR VOLUME 82.8 fL (80.0-94.0); MEAN PLATELET VOLUME 8.6 fl (7.4-10.4); NEUTROPHILS % 80.5 % (40.0-76.0); PLATELET 333 x1000/uL (130-400); RED BLOOD CELL COUNT 3.57 mill/uL (4.7-6.1); RED CELL DISTRIBUTION WIDTH 18.6 % (11.6-14.6)
[2019-07-22 09:53] LABS: CHLORIDE 104 mEq/L (98-107)
[2019-07-22 12:00] VITALS: BP 127/73
[2019-07-22] MEDS ORDERED: POTASSIUM CHLORIDE 20MEQ/PACKET PO SCH (14:00)
[2019-07-22 16:00] VITALS: BP 117/72
[2019-07-22 20:00] VITALS: BP 148/83
[2019-07-22] MEDS: ATORVASTATIN CALCIUM 40MG TABLET PO SCH (21:38)
[2019-07-23] VITALS: BP 137/75
[2019-07-23] MEDS: PIPERACILLIN/TAZOBACTAM 3.375 G in DEXT 5% WATER 100 ML IV SCH ×4 (02:21→17:26)
[2019-07-23 04:00] VITALS: BP 140/78
[2019-07-23] MEDS: ATENOLOL 50 MG TABLET PO SCH ×2 (06:41→14:59)
[2019-07-23] MEDS: FERROUS SULFATE 300MG/5ML UDC PO SCH ×2 (06:41→13:32)
[2019-07-23 08:00] VITALS: BP 127/86
[2019-07-23] MEDS: ZINC SULFATE 220 MG ( 50 ) CAPSULE PO SCH (08:50)
[2019-07-23] MEDS: CLOPIDOGREL 75MG TABLET PO SCH (08:51)
[2019-07-23] MEDS: ASCORBIC ACID 500 MG TABLET PO SCH (08:51)
[2019-07-23] MEDS: THIAMINE HCL 100MG TABLET PO SCH ×2 (08:51→17:26)
[2019-07-23] MEDS: FAMOTIDINE 20MG TABLET PO SCH ×2 (08:51→17:26)
[2019-07-23] MEDS: ENOXAPARIN 40MG/0.4ML SYR SUBCUT SCH (08:52)
[2019-07-23] MEDS: LISINOPRIL 10MG TABLET PO SCH (08:52)
[2019-07-23] MEDS: ASPIRIN 81MG TABLET PO SCH (08:52)
[2019-07-23] MEDS: AMLODIPINE 5MG TABLET PO SCH (08:52)
[2019-07-23 10:35] LABS: BASOPHILS % 0.6 % (0.0-2.0); CHLORIDE 106 mEq/L (98-107); EOSINOPHILS % 0.9 % (0.0-5.0); HEMATOCRIT. 24.2 % (42.0-52.0); HEMOGLOBIN. 7.9 g/dL (14.0-18.0); LYMPHOCYTES % 10.5 % (20.0-50.0); MEAN CORPUSCULAR HEMOGLOBIN 26.8 pg (28.0-32.0); MEAN CORPUSCULAR VOLUME 82.1 fL (80.0-94.0); MEAN PLATELET VOLUME 8.2 fl (7.4-10.4); MONOCYTES % 8.9 % (2.0-8.0); NEUTROPHILS % 79.1 % (40.0-76.0); PLATELET 414 x1000/uL (130-400); RED BLOOD CELL COUNT 2.95 mill/uL (4.7-6.1); RED CELL DISTRIBUTION WIDTH 18.6 % (11.6-14.6)
[2019-07-23 12:00] VITALS: BP 129/75
[2019-07-23] MEDS ORDERED: POTASSIUM CHLORIDE 20MEQ/PACKET PO NR (12:00)
[2019-07-23] MEDS: GUAIFENESIN 200MG/10ML SUGAR FREE UDC PO SCH (14:58)
[2019-07-23] MEDS: VANCOMYCIN 1 G PREMIX 200 ML IV SCH (14:59)
[2019-07-23 16:00] VITALS: BP 143/85
[2019-07-23] MEDS: FERROUS SULFATE 325MG TABLET PO SCH (17:26)
[2019-07-24] VITALS: BP 190/89
[2019-07-24] MEDS: VANCOMYCIN 1 G PREMIX 200 ML IV SCH ×2 (02:11→13:53)
[2019-07-24] MEDS: AMLODIPINE 5MG TABLET PO SCH ×3 (02:12→20:57)
[2019-07-24] MEDS: LISINOPRIL 10MG TABLET PO SCH ×4 (02:13→20:57)
[2019-07-24] MEDS: ASCORBIC ACID 500 MG TABLET PO SCH ×3 (02:13→20:56)
[2019-07-24] MEDS: ATORVASTATIN CALCIUM 40MG TABLET PO SCH ×2 (02:13→20:57)
[2019-07-24 04:00] VITALS: BP 124/46
[2019-07-24] MEDS: PIPERACILLIN/TAZOBACTAM 3.375 G in DEXT 5% WATER 100 ML IV SCH ×3 (05:22→18:13)
[2019-07-24] MEDS: ATENOLOL 50 MG TABLET PO SCH ×3 (06:00→21:00)
[2019-07-24] MEDS: GUAIFENESIN 200MG/10ML SUGAR FREE UDC PO SCH ×3 (06:00→21:00)
[2019-07-24] MEDS: FERROUS SULFATE 325MG TABLET PO SCH ×3 (07:10→18:13)
[2019-07-24 08:00] VITALS: BP 107/45
[2019-07-24 09:04] LABS: BASOPHILS % 0.9 % (0.0-2.0); EOSINOPHILS % 0.8 % (0.0-5.0); HEMATOCRIT. 26.8 % (42.0-52.0); HEMOGLOBIN. 8.7 g/dL (14.0-18.0); LYMPHOCYTES % 13.5 % (20.0-50.0); MEAN CORPUSCULAR HEMOGLOBIN 27.3 pg (28.0-32.0); MEAN CORPUSCULAR VOLUME 84.3 fL (80.0-94.0); MEAN PLATELET VOLUME 8.2 fl (7.4-10.4); MONOCYTES % 9.8 % (2.0-8.0); PLATELET 482 x1000/uL (130-400); RED BLOOD CELL COUNT 3.18 mill/uL (4.7-6.1); RED CELL DISTRIBUTION WIDTH 18.6 % (11.6-14.6)
[2019-07-24 09:20] LABS: CHLORIDE 105 mEq/L (98-107)
[2019-07-24] MEDS: ZINC SULFATE 220 MG ( 50 ) CAPSULE PO SCH (10:42)
[2019-07-24] MEDS: FAMOTIDINE 20MG TABLET PO SCH ×2 (10:42→18:13)
[2019-07-24] MEDS: THIAMINE HCL 100MG TABLET PO SCH ×2 (10:42→18:12)
[2019-07-24] MEDS: CLOPIDOGREL 75MG TABLET PO SCH (10:43)
[2019-07-24] MEDS: ASPIRIN 81MG TABLET PO SCH (10:43)
[2019-07-24 12:00] VITALS: BP 116/77
[2019-07-24] MEDS ORDERED: POTASSIUM CHLORIDE 20MEQ/PACKET PO NR (15:00)
[2019-07-24 16:00] VITALS: BP 146/86
[2019-07-24 20:00] VITALS: BP 163/67
[2019-07-24] MEDS: CEFEPIME 2,000 MG in DEXT 5% WATER 100 ML IV SCH (23:15)
[2019-07-25] VITALS: BP 105/88
[2019-07-25] MEDS: VANCOMYCIN 1 G PREMIX 200 ML IV SCH ×2 (01:22→13:35)
[2019-07-25 04:00] VITALS: BP 117/74
[2019-07-25 06:07] LABS: BASOPHILS % 1.3 % (0.0-2.0); EOSINOPHILS % 1.8 % (0.0-5.0); HEMATOCRIT. 24.7 % (42.0-52.0); HEMOGLOBIN. 8.2 g/dL (14.0-18.0); MEAN CORPUSCULAR HEMOGLOBIN 27.6 pg (28.0-32.0); MEAN CORPUSCULAR VOLUME 82.9 fL (80.0-94.0); MEAN PLATELET VOLUME 7.9 fl (7.4-10.4); MONOCYTES % 10.1 % (2.0-8.0); NEUTROPHILS % 70.8 % (40.0-76.0); PLATELET 440 x1000/uL (130-400); RED BLOOD CELL COUNT 2.98 mill/uL (4.7-6.1); RED CELL DISTRIBUTION WIDTH 19.1 % (11.6-14.6)
[2019-07-25] MEDS: FERROUS SULFATE 325MG TABLET PO SCH ×3 (06:11→18:02)
[2019-07-25] MEDS: GUAIFENESIN 200MG/10ML SUGAR FREE UDC PO SCH ×3 (06:11→21:47)
[2019-07-25] MEDS: ATENOLOL 50 MG TABLET PO SCH ×3 (06:11→21:49)
[2019-07-25 07:00] LABS: CHLORIDE 107 mEq/L (98-107)
[2019-07-25 08:00] VITALS: BP 154/63
[2019-07-25] MEDS: CEFEPIME 2,000 MG in DEXT 5% WATER 100 ML IV SCH ×2 (09:05→21:50)
[2019-07-25] MEDS: ASPIRIN 81MG TABLET PO SCH (09:05)
[2019-07-25] MEDS: THIAMINE HCL 100MG TABLET PO SCH ×2 (09:05→18:02)
[2019-07-25] MEDS: CLOPIDOGREL 75MG TABLET PO SCH (09:06)
[2019-07-25] MEDS: AMLODIPINE 5MG TABLET PO SCH ×2 (09:06→21:49)
[2019-07-25] MEDS: LISINOPRIL 10MG TABLET PO SCH ×2 (09:06→21:48)
[2019-07-25] MEDS: ASCORBIC ACID 500 MG TABLET PO SCH ×2 (09:06→21:49)
[2019-07-25] MEDS: FAMOTIDINE 20MG TABLET PO SCH ×2 (09:06→18:02)
[2019-07-25] MEDS: ZINC SULFATE 220 MG ( 50 ) CAPSULE PO SCH (09:06)
[2019-07-25 11:57] LABS: COVID-19 PCR RNA DETECTED
[2019-07-25 12:00] VITALS: BP 115/67
[2019-07-25 20:00] VITALS: BP 157/69
[2019-07-25] MEDS: ATORVASTATIN CALCIUM 40MG TABLET PO SCH (21:47)
[2019-07-26] VITALS: BP 145/78
[2019-07-26] MEDS: ACETAMINOPHEN 325MG TABLET PO PRN ×2 (00:35→06:16)
[2019-07-26 04:00] VITALS: BP 148/65
[2019-07-26 05:09] LABS: CHLORIDE 105 mEq/L (98-107)
[2019-07-26 05:48] LABS: BASOPHILS % 0.7 % (0.0-2.0); EOSINOPHILS % 2.1 % (0.0-5.0); HEMATOCRIT. 27.5 % (42.0-52.0); LYMPHOCYTES % 17.1 % (20.0-50.0); MEAN CORPUSCULAR HEMOGLOBIN 27.5 pg (28.0-32.0); MEAN CORPUSCULAR VOLUME 83.7 fL (80.0-94.0); MEAN PLATELET VOLUME 8.1 fl (7.4-10.4); MONOCYTES % 10.2 % (2.0-8.0); NEUTROPHILS % 69.9 % (40.0-76.0); PLATELET 448 x1000/uL (130-400); RED BLOOD CELL COUNT 3.28 mill/uL (4.7-6.1); RED CELL DISTRIBUTION WIDTH 18.7 % (11.6-14.6)
[2019-07-26] MEDS: FERROUS SULFATE 325MG TABLET PO SCH ×3 (06:15→18:59)
[2019-07-26] MEDS: GUAIFENESIN 200MG/10ML SUGAR FREE UDC PO SCH ×3 (06:15→22:14)
[2019-07-26] MEDS: ATENOLOL 50 MG TABLET PO SCH ×2 (06:16→14:59)
[2019-07-26 08:00] VITALS: BP 152/71
[2019-07-26] MEDS: THIAMINE HCL 100MG TABLET PO SCH ×2 (10:21→18:59)
[2019-07-26] MEDS: CEFEPIME 2,000 MG in DEXT 5% WATER 100 ML IV SCH ×2 (10:21→22:14)
[2019-07-26] MEDS: LISINOPRIL 10MG TABLET PO SCH ×2 (10:21→22:15)
[2019-07-26] MEDS: ASPIRIN 81MG TABLET PO SCH (10:22)
[2019-07-26] MEDS: AMLODIPINE 5MG TABLET PO SCH ×2 (10:22→22:15)
[2019-07-26] MEDS: CLOPIDOGREL 75MG TABLET PO SCH (10:22)
[2019-07-26] MEDS: ZINC SULFATE 220 MG ( 50 ) CAPSULE PO SCH (10:28)
[2019-07-26] MEDS: ASCORBIC ACID 500 MG TABLET PO SCH ×2 (10:28→22:15)
[2019-07-26 12:00] VITALS: BP 162/65
[2019-07-26] MEDS: FAMOTIDINE 20MG TABLET PO SCH ×2 (12:18→18:59)
[2019-07-26 20:00] VITALS: BP 135/63
[2019-07-26] MEDS: ATORVASTATIN CALCIUM 40MG TABLET PO SCH (22:16)
[2019-07-27 00:18] VITALS: BP 140/68
[2019-07-27] MEDS: ATENOLOL 50 MG TABLET PO SCH ×4 (00:30→21:58)
[2019-07-27 04:00] VITALS: BP 124/77
[2019-07-27] MEDS: GUAIFENESIN 200MG/10ML SUGAR FREE UDC PO SCH ×3 (06:04→21:57)
[2019-07-27 07:58] LABS: BASOPHILS % 0.8 % (0.0-2.0); EOSINOPHILS % 2.6 % (0.0-5.0); HEMATOCRIT. 27.8 % (42.0-52.0); HEMOGLOBIN. 9.2 g/dL (14.0-18.0); LYMPHOCYTES % 15.3 % (20.0-50.0); MEAN CORPUSCULAR HEMOGLOBIN 26.7 pg (28.0-32.0); MEAN CORPUSCULAR VOLUME 80.4 fL (80.0-94.0); MEAN PLATELET VOLUME 7.6 fl (7.4-10.4); MONOCYTES % 9.7 % (2.0-8.0); NEUTROPHILS % 71.6 % (40.0-76.0); PLATELET 479 x1000/uL (130-400); RED BLOOD CELL COUNT 3.45 mill/uL (4.7-6.1); RED CELL DISTRIBUTION WIDTH 19.1 % (11.6-14.6)
[2019-07-27 08:00] VITALS: BP 148/70
[2019-07-27 08:06] LABS: CHLORIDE 105 mEq/L (98-107)
[2019-07-27] MEDS: THIAMINE HCL 100MG TABLET PO SCH ×2 (08:32→17:33)
[2019-07-27] MEDS: LISINOPRIL 10MG TABLET PO SCH ×2 (08:33→21:58)
[2019-07-27] MEDS: FAMOTIDINE 20MG TABLET PO SCH ×2 (08:33→17:33)
[2019-07-27] MEDS: ASCORBIC ACID 500 MG TABLET PO SCH ×2 (08:33→21:57)
[2019-07-27] MEDS: ZINC SULFATE 220 MG ( 50 ) CAPSULE PO SCH (08:33)
[2019-07-27] MEDS: FERROUS SULFATE 325MG TABLET PO SCH ×3 (08:33→17:33)
[2019-07-27] MEDS: AMLODIPINE 5MG TABLET PO SCH ×2 (08:34→21:58)
[2019-07-27] MEDS: CEFEPIME 2,000 MG in DEXT 5% WATER 100 ML IV SCH ×2 (08:35→21:58)
[2019-07-27] MEDS: ASPIRIN 81MG TABLET PO SCH (08:35)
[2019-07-27] MEDS: CLOPIDOGREL 75MG TABLET PO SCH (08:35)
[2019-07-27 12:00] VITALS: BP 155/72
[2019-07-27 16:00] VITALS: BP 165/69
[2019-07-27 20:00] VITALS: BP 159/69
[2019-07-27] MEDS: ATORVASTATIN CALCIUM 40MG TABLET PO SCH (21:57)
[2019-07-28] VITALS: BP 164/74
[2019-07-28 04:00] VITALS: BP 179/98
[2019-07-28 04:14] LABS: BASOPHILS % 0.8 % (0.0-2.0); HEMOGLOBIN. 8.9 g/dL (14.0-18.0); LYMPHOCYTES % 17.6 % (20.0-50.0); MEAN CORPUSCULAR HEMOGLOBIN 26.7 pg (28.0-32.0); MEAN PLATELET VOLUME 7.6 fl (7.4-10.4); MONOCYTES % 10.8 % (2.0-8.0); NEUTROPHILS % 67.8 % (40.0-76.0); PLATELET 483 x1000/uL (130-400); RED BLOOD CELL COUNT 3.33 mill/uL (4.7-6.1); RED CELL DISTRIBUTION WIDTH 19.4 % (11.6-14.6)
[2019-07-28 04:24] LABS: CHLORIDE 106 mEq/L (98-107)
[2019-07-28] MEDS: GUAIFENESIN 200MG/10ML SUGAR FREE UDC PO SCH ×3 (07:10→21:35)
[2019-07-28] MEDS: FERROUS SULFATE 325MG TABLET PO SCH ×3 (07:10→16:18)
[2019-07-28] MEDS: ATENOLOL 50 MG TABLET PO SCH ×3 (07:11→21:39)
[2019-07-28 08:00] VITALS: BP 149/96
[2019-07-28] MEDS: LISINOPRIL 10MG TABLET PO SCH ×2 (09:00→21:39)
[2019-07-28] MEDS: CLOPIDOGREL 75MG TABLET PO SCH (09:00)
[2019-07-28] MEDS: AMLODIPINE 5MG TABLET PO SCH ×2 (09:00→21:40)
[2019-07-28] MEDS: CEFEPIME 2,000 MG in DEXT 5% WATER 100 ML IV SCH ×2 (09:00→21:38)
[2019-07-28] MEDS: ASCORBIC ACID 500 MG TABLET PO SCH ×2 (09:00→21:36)
[2019-07-28] MEDS: THIAMINE HCL 100MG TABLET PO SCH ×2 (09:00→16:18)
[2019-07-28] MEDS: ASPIRIN 81MG TABLET PO SCH (09:00)
[2019-07-28] MEDS: ZINC SULFATE 220 MG ( 50 ) CAPSULE PO SCH (09:00)
[2019-07-28] MEDS: FAMOTIDINE 20MG TABLET PO SCH ×2 (09:00→16:18)
[2019-07-28 12:00] VITALS: BP_SYST 138; BP_SYST 149; BP_DIAS 73; BP_DIAS 96
[2019-07-28 16:00] VITALS: BP 113/56
[2019-07-28 20:00] VITALS: BP 152/88
[2019-07-28] MEDS: ATORVASTATIN CALCIUM 40MG TABLET PO SCH (21:39)
[2019-07-29] VITALS: BP 160/72
[2019-07-29 04:00] VITALS: BP 164/68
[2019-07-29] MEDS: GUAIFENESIN 200MG/10ML SUGAR FREE UDC PO SCH ×3 (06:50→21:17)
[2019-07-29] MEDS: FERROUS SULFATE 325MG TABLET PO SCH ×3 (06:50→16:28)
[2019-07-29] MEDS: ATENOLOL 50 MG TABLET PO SCH ×3 (06:52→21:16)
[2019-07-29 08:00] VITALS: BP 137/59
[2019-07-29] MEDS: THIAMINE HCL 100MG TABLET PO SCH ×2 (09:00→16:28)
[2019-07-29] MEDS: FAMOTIDINE 20MG TABLET PO SCH ×2 (11:13→16:28)
[2019-07-29] MEDS: AMLODIPINE 5MG TABLET PO SCH ×2 (11:13→21:17)
[2019-07-29] MEDS: ASCORBIC ACID 500 MG TABLET PO SCH ×2 (11:13→21:16)
[2019-07-29] MEDS: ZINC SULFATE 220 MG ( 50 ) CAPSULE PO SCH (11:13)
[2019-07-29] MEDS: CLOPIDOGREL 75MG TABLET PO SCH (11:14)
[2019-07-29] MEDS: LISINOPRIL 10MG TABLET PO SCH ×2 (11:14→21:16)
[2019-07-29] MEDS: ASPIRIN 81MG TABLET PO SCH (11:14)
[2019-07-29] MEDS: CEFEPIME 2,000 MG in DEXT 5% WATER 100 ML IV SCH ×2 (11:15→21:18)
[2019-07-29 12:00] VITALS: BP 99/50
[2019-07-29 16:00] VITALS: BP 108/57
[2019-07-29 20:00] VITALS: BP 127/57
[2019-07-29] MEDS: ATORVASTATIN CALCIUM 40MG TABLET PO SCH (21:16)
[2019-07-30] VITALS: BP 126/58
[2019-07-30 04:00] VITALS: BP 145/58
[2019-07-30] MEDS: FERROUS SULFATE 325MG TABLET PO SCH ×3 (05:45→16:55)
[2019-07-30] MEDS: GUAIFENESIN 200MG/10ML SUGAR FREE UDC PO SCH ×3 (05:45→20:53)
[2019-07-30] MEDS: ATENOLOL 50 MG TABLET PO SCH ×3 (05:45→20:53)
[2019-07-30 06:37] LABS: BASOPHILS % 0.7 % (0.0-2.0); HEMATOCRIT. 25.9 % (42.0-52.0); HEMOGLOBIN. 8.4 g/dL (14.0-18.0); LYMPHOCYTES % 19.1 % (20.0-50.0); MEAN CORPUSCULAR HEMOGLOBIN 26.6 pg (28.0-32.0); MEAN CORPUSCULAR VOLUME 82.1 fL (80.0-94.0); MEAN PLATELET VOLUME 7.8 fl (7.4-10.4); MONOCYTES % 10.3 % (2.0-8.0); NEUTROPHILS % 66.9 % (40.0-76.0); PLATELET 463 x1000/uL (130-400); RED BLOOD CELL COUNT 3.16 mill/uL (4.7-6.1); RED CELL DISTRIBUTION WIDTH 20.3 % (11.6-14.6)
[2019-07-30 06:47] LABS: CHLORIDE 104 mEq/L (98-107)
[2019-07-30 08:00] VITALS: BP 148/62
[2019-07-30] MEDS: FAMOTIDINE 20MG TABLET PO SCH ×2 (11:01→16:55)
[2019-07-30] MEDS: ZINC SULFATE 220 MG ( 50 ) CAPSULE PO SCH (11:01)
[2019-07-30] MEDS: CLOPIDOGREL 75MG TABLET PO SCH (11:01)
[2019-07-30] MEDS: ASCORBIC ACID 500 MG TABLET PO SCH ×2 (11:01→20:52)
[2019-07-30] MEDS: ASPIRIN 81MG TABLET PO SCH (11:02)
[2019-07-30] MEDS: AMLODIPINE 5MG TABLET PO SCH ×2 (11:02→20:52)
[2019-07-30] MEDS: THIAMINE HCL 100MG TABLET PO SCH ×2 (11:02→16:55)
[2019-07-30] MEDS: LISINOPRIL 10MG TABLET PO SCH ×2 (11:02→20:52)
[2019-07-30 12:00] VITALS: BP 101/54
[2019-07-30 16:00] VITALS: BP_SYST 101; BP_SYST 165; BP_DIAS 54; BP_DIAS 83
[2019-07-30 20:00] VITALS: BP 122/53
[2019-07-30] MEDS: ATORVASTATIN CALCIUM 40MG TABLET PO SCH (20:52)
[2019-07-31] VITALS: BP 127/55
[2019-07-31 04:00] VITALS: BP 131/63
[2019-07-31] MEDS: GUAIFENESIN 200MG/10ML SUGAR FREE UDC PO SCH ×3 (07:05→21:44)
[2019-07-31] MEDS: FERROUS SULFATE 325MG TABLET PO SCH ×3 (07:05→17:05)
[2019-07-31] MEDS: ATENOLOL 50 MG TABLET PO SCH ×3 (07:05→21:45)
[2019-07-31 08:00] VITALS: BP 121/57
[2019-07-31 09:10] LABS: BASOPHILS % 1.1 % (0.0-2.0); EOSINOPHILS % 2.7 % (0.0-5.0); HEMATOCRIT. 24.8 % (42.0-52.0); HEMOGLOBIN. 7.8 g/dL (14.0-18.0); LYMPHOCYTES % 16.8 % (20.0-50.0); MEAN CORPUSCULAR HEMOGLOBIN 26.1 pg (28.0-32.0); MEAN CORPUSCULAR VOLUME 82.4 fL (80.0-94.0); MEAN PLATELET VOLUME 8.6 fl (7.4-10.4); MONOCYTES % 7.1 % (2.0-8.0); NEUTROPHILS % 72.3 % (40.0-76.0); PLATELET 435 x1000/uL (130-400); RED BLOOD CELL COUNT 3.01 mill/uL (4.7-6.1); RED CELL DISTRIBUTION WIDTH 20.7 % (11.6-14.6)
[2019-07-31] MEDS: ZINC SULFATE 220 MG ( 50 ) CAPSULE PO SCH (09:19)
[2019-07-31] MEDS: THIAMINE HCL 100MG TABLET PO SCH ×2 (09:19→17:05)
[2019-07-31] MEDS: ASPIRIN 81MG TABLET PO SCH (09:19)
[2019-07-31] MEDS: CLOPIDOGREL 75MG TABLET PO SCH (09:19)
[2019-07-31] MEDS: ASCORBIC ACID 500 MG TABLET PO SCH ×2 (09:19→21:49)
[2019-07-31] MEDS: FAMOTIDINE 20MG TABLET PO SCH ×2 (09:19→17:05)
[2019-07-31] MEDS: AMLODIPINE 5MG TABLET PO SCH ×2 (09:19→21:45)
[2019-07-31] MEDS: LISINOPRIL 10MG TABLET PO SCH ×2 (09:25→21:45)
[2019-07-31 09:29] LABS: CHLORIDE 102 mEq/L (98-107)
[2019-07-31 12:00] VITALS: BP 117/62
[2019-07-31] MEDS: CEFEPIME 2,000 MG in DEXT 5% WATER 100 ML IV SCH ×2 (14:03→21:44)
[2019-07-31 16:00] VITALS: BP 134/58
[2019-07-31 20:49] VITALS: BP 127/64
[2019-07-31] MEDS: ATORVASTATIN CALCIUM 40MG TABLET PO SCH (21:44)
[2019-08-01 00:14] VITALS: BP 120/68
[2019-08-01 04:00] VITALS: BP 94/62
[2019-08-01] MEDS: ACETAMINOPHEN 325MG TABLET PO PRN ×2 (05:54→22:00)
[2019-08-01] MEDS: FERROUS SULFATE 325MG TABLET PO SCH ×3 (05:55→17:47)
[2019-08-01] MEDS: ATENOLOL 50 MG TABLET PO SCH ×3 (05:55→22:01)
[2019-08-01] MEDS: GUAIFENESIN 200MG/10ML SUGAR FREE UDC PO SCH ×3 (05:55→22:05)
[2019-08-01 07:22] LABS: BASOPHILS % 0.5 % (0.0-2.0); EOSINOPHILS % 2.5 % (0.0-5.0); HEMOGLOBIN. 8.2 g/dL (14.0-18.0); LYMPHOCYTES % 13.4 % (20.0-50.0); MEAN CORPUSCULAR HEMOGLOBIN 26.3 pg (28.0-32.0); MEAN CORPUSCULAR VOLUME 83.7 fL (80.0-94.0); MEAN PLATELET VOLUME 8.6 fl (7.4-10.4); MONOCYTES % 7.5 % (2.0-8.0); NEUTROPHILS % 76.1 % (40.0-76.0); PLATELET 417 x1000/uL (130-400); RED CELL DISTRIBUTION WIDTH 20.2 % (11.6-14.6)
[2019-08-01 08:00] VITALS: BP 120/50
[2019-08-01] MEDS: LISINOPRIL 10MG TABLET PO SCH ×2 (09:00→22:01)
[2019-08-01] MEDS: AMLODIPINE 5MG TABLET PO SCH ×2 (09:00→22:03)
[2019-08-01] MEDS: ASCORBIC ACID 500 MG TABLET PO SCH ×2 (09:36→22:00)
[2019-08-01] MEDS: ZINC SULFATE 220 MG ( 50 ) CAPSULE PO SCH (09:36)
[2019-08-01] MEDS: FAMOTIDINE 20MG TABLET PO SCH ×2 (09:36→17:48)
[2019-08-01] MEDS: ASPIRIN 81MG TABLET PO SCH (09:36)
[2019-08-01] MEDS: CLOPIDOGREL 75MG TABLET PO SCH (09:37)
[2019-08-01] MEDS: THIAMINE HCL 100MG TABLET PO SCH ×2 (09:37→17:48)
[2019-08-01] MEDS: CEFEPIME 2,000 MG in DEXT 5% WATER 100 ML IV SCH ×2 (09:41→22:03)
[2019-08-01 12:00] VITALS: BP 126/50
[2019-08-01 16:00] VITALS: BP 128/59
[2019-08-01 19:28] LABS: BG BASE EXCESS -0.3 mmol/L (-2.0-2.0); BG CARBOXYHEMOGLOBIN 0.3 % (0.5-1.5); BG DEOXYHEMOGLOBIN 35.5 % (0.0-5.0); BG FRACTION INSPIRED OXYGEN 38; BG METHEMOGLOBIN 0.2 % (0.0-1.5); BG OXYGEN SATURATION 64.3 % (92.0-98.5); BG PCO2 27.3 mmHg (35.0-45.0); BG PH 7.524 (7.350-7.450); BG PO2 32.2 mmHg (75.0-100.0); BG SAMPLE SITE RIGHT RADIAL; BG TOTAL HEMOGLOBIN 8.6 g/dL (12.0-18.0); BG VENT MODE NASAL CANNULA
[2019-08-01 20:00] VITALS: BP 154/63
[2019-08-01] MEDS ORDERED: DOXYCYCLINE 100 MG in DEXT 5% WATER 100 ML IV SCH (20:00)
[2019-08-01] MEDS ORDERED: DOXYCYCLINE HYCLATE 100MG CAPSULE PO SCH (21:00)
[2019-08-01] MEDS: ATORVASTATIN CALCIUM 40MG TABLET PO SCH (22:01)
[2019-08-01] MEDS: LORAZEPAM 2MG/ML CPJ IV PRN (22:46)
[2019-08-02 00:51] VITALS: BP 128/72
== END 2019-08-02 04:24 | disposition expired | DRG 870 ==
LOC: ER 19:25 → EDBEDREQ 19:48 → EDBEDREQTM 19:48 → EDBEDREQ 19:52 → MICUSO 21:12 → EDBEDREQ 21:15 → EDBEDREQSVC 21:15 → EDBEDREQTM 21:15 → ENRESERV 07-10 18:23 → 7EST 07-21 22:06 → 5WST 08-02 00:30
PROVIDERS: ADMIT Internal Medicine; ATTEND Internal Medicine
PROC: 5A1955Z Respiratory Ventilation, Greater than 96 Consecutive Hours (ICD-10-PCS; principal; 2019-07-09)
PROC: 05HY33Z Insertion of Infusion Device into Upper Vein, Percutaneous Approach (ICD-10-PCS; 2019-07-09)
PROC: B54NZZA Ultrasonography of Left Upper Extremity Veins, Guidance (ICD-10-PCS; 2019-07-09)
PROC: 0BH17EZ Insertion of Endotracheal Airway into Trachea, Via Natural or Artificial Opening (ICD-10-PCS; 2019-07-09)
PROC: 30233N1 Transfusion of Nonautologous Red Blood Cells into Peripheral Vein, Percutaneous Approach (ICD-10-PCS; 2019-07-13)
DX: A41.89 Other specified sepsis (principal); U07.1 COVID-19; R65.21 Severe sepsis with septic shock; E43 Unspecified severe protein-calorie malnutrition; J96.01 Acute respiratory failure with hypoxia; N17.0 Acute kidney failure with tubular necrosis; J12.89 Other viral pneumonia; T80.211A Bloodstream infection due to central venous catheter, initial encounter; E87.0 Hyperosmolality and hypernatremia; K55.9 Vascular disorder of intestine, unspecified; J90 Pleural effusion, not elsewhere classified; G93.40 Encephalopathy, unspecified; E11.9 Type 2 diabetes mellitus without complications; I10 Essential (primary) hypertension; E78.00 Pure hypercholesterolemia, unspecified; D64.9 Anemia, unspecified; F03.90 Unspecified dementia, unspecified severity, without behavioral disturbance, psychotic disturbance, mood disturbance, and anxiety; E78.5 Hyperlipidemia, unspecified; E87.8 Other disorders of electrolyte and fluid balance, not elsewhere classified; R74.0 Nonspecific elevation of levels of transaminase and lactic acid dehydrogenase [LDH]; Z66 Do not resuscitate; D72.810 Lymphocytopenia; E61.1 Iron deficiency; R13.12 Dysphagia, oropharyngeal phase; D69.6 Thrombocytopenia, unspecified; Z51.5 Encounter for palliative care; E87.6 Hypokalemia; B95.7 Other staphylococcus as the cause of diseases classified elsewhere; B97.89 Other viral agents as the cause of diseases classified elsewhere; Y84.8 Other medical procedures as the cause of abnormal reaction of the patient, or of later complication, without mention of misadventure at the time of the procedure; A41.1 Sepsis due to other specified staphylococcus; A41.59 Other Gram-negative sepsis; Z86.73 Personal history of transient ischemic attack (TIA), and cerebral infarction without residual deficits; Z79.82 Long term (current) use of aspirin; Z79.899 Other long term (current) drug therapy; Z79.1 Long term (current) use of non-steroidal anti-inflammatories (NSAID); Z93.1 Gastrostomy status; Z68.29 Body mass index [BMI] 29.0-29.9, adult; Z78.1 Physical restraint status
CPT/HCPCS: 31500; 36415; 36556; 36600; 71045; 80048; 80053; 80076; 80202; 81003; 82375; 82728; 82805; 83540; 83550; 83605; 83615; 83735; 84100; 84145; 84478; 84484; 85025; 85027; 86140; 86850; 86900; 86920; 87070; 87077; 87186; 87635; 93005; 94002; 94003; 99291; C9113; J0692; J1265; J1650; J2020; J2060; J2250; J2270; J2543; J2704; J2765; J3370; J3480; J3490; J7030; J7060; P9016